=== PATIENT | male | born 1935 | race Caucasian/White ===

== ENCOUNTER 2023-02-23 15:37 | Inpatient (IN) | payer MEDICARE, BC ==
--- NOTE | 2023-02-23 16:26 | ED ---
Extremity Problem HPI - General Chief complaint: Extremity Injury, Lower Stated complaint: Bilat leg swelling Time Seen by Provider: 02/23/23 15:53 Source: patient, RN notes reviewed, old records reviewed Mode of arrival: EMS Limitations: no limitations - History of Present Illness Initial comments: This is a 87-year-old male to the emergency department today. Presents today for evaluation of lower extremity edema with weeping. Patient has significant pain in both legs with significant swelling as well as shortness of breath especially with exertion. 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 Patient has no fevers no chest pain MD Complaint: extremity pain, extremity swelling -: days(s) Location: bilateral lower extremity History of Same: Yes -: Yes arthralgia Radiation: none Severity scale (1-10): 7 Quality: aching Consistency: constant Improves with: nothing Worsens with: nothing Associated Symptoms: shortness of breath - Related Data Home Medications Medication Instructions Recorded Confirmed Atorvastatin [Lipitor] 40 mg PO HS@209902/13/18 02/23/23 Citalopram Hydrobromide [CeleXA] 20 mg PO DAILY@0900 02/13/18 02/23/23 Tamsulosin [Flomax] 0.4 mg PO DAILY@0900 02/13/18 02/23/23 Acetaminophen Tab [Tylenol] 650 mg PO Q6H PRN 02/23/23 02/23/23 Ascorbic Acid [Vitamin C] 500 mg PO HS@209902/23/23 02/23/23 Cholecalciferol [Vitamin D3 (25 50 mcg PO DAILY@0902/23/23 02/23/23 Mcg = 1000 Iu)] Docusate Sodium [Dok] 100 mg PO BID@0900,209902/23/23 02/23/23 Ipratropium-Albuterol Nebulize 3 ml INHALATION RT-Q4H PRN 02/23/23 02/23/23 [Duoneb 0.5 mg-3 mg/3 ml Soln] Levothyroxine Sodium [Synthroid] 75 mcg PO DAILY@0700 02/23/23 02/23/23 Menthol-Zinc Oxide Oint 1 applic TOPICAL BID@0600,209902/23/23 02/23/23 [Calmoseptine Ointment] Miconazole Nitrate 2% Powder 1 applic TOPICAL BID@0600,2100 02/23/23 02/23/23 Multivitamins, Thera [Multivitamin 1 tab PO DAILY@0900 02/23/23 02/23/23 (formulary)] Rivaroxaban [Xarelto] 15 mg PO DAILY@1500 02/23/23 02/23/23 Trospium Chloride 20 mg PO HS@2100 02/23/23 02/23/23 carvediloL [Coreg] 12.5 mg PO BID@0900,2100 02/23/23 02/23/23 Previous Rx's Medication Instructions Recorded Furosemide [Lasix] 40 mg PO DAILY #30 tab 02/24/23 Spironolactone [Aldactone] 25 mg PO DAILY #30 tab 02/24/23 Losartan [Cozaar] 100 mg PO HS tab 02/26/23 Allergies Allergy/AdvReac Type Severity Reaction Status Date / Time No Known Allergies Allergy Verified 02/23/23 18:48 Review of Systems ROS Statement: Those systems with pertinent positive or pertinent negative responses have been documented in the HPI. ROS Other: All systems not noted in ROS Statement are negative. Past Medical History Past Medical History: Atrial Fibrillation, Cancer, Hyperlipidemia, Hypertension, Prostate Disorder, Thyroid Disorder Additional Past Medical History / Comment(s): colon cancer-. was recently in [facility] for hypertensive encephalopathy- was very lethargic at home he could not understand directions, confused, could not talk right had word salad could not hold pen, confused symptoms of stroke but doctors ruled out no stroke, very hypertensive confusion related to encephalopathy, could not comprehend anything. He is better with talking now, each day language gets better and comprehending is better but not all the way where it needs to be, uses a cane or walker to walk. History of Any Multi-Drug Resistant Organisms: None Reported Past Surgical History: Appendectomy, Heart Catheterization With Stent, Orthopedic Surgery Additional Past Surgical History / Comment(s): Polyp removal cardiac ablation for a fibrillation, left shoulder surgery Past Anesthesia/Blood Transfusion Reactions: No Reported Reaction Date of Last Stent Placement:: 2012 Past Psychological History: No Psychological Hx Reported Smoking Status: Former smoker Past Alcohol Use History: None Reported Past Drug Use History: None Reported - Past Family History Father History Unknown: Yes Mother Family Medical History: Cancer Additional Family Medical History / Comment(s): pancreatic cancer, aortic aneurysm General Exam General appearance: alert, in no apparent distress, anxious Head exam: Present: atraumatic, normocephalic, normal inspection Eye exam: Present: normal appearance, PERRL, EOMI. Absent: scleral icterus, co njunctival injection, periorbital swelling ENT exam: Present: normal exam, mucous membranes moist Neck exam: Present: normal inspection. Absent: tenderness, meningismus, lymphadenopathy Respiratory exam: Present: normal lung sounds bilaterally. Absent: respiratory distress, wheezes, rales, rhonchi, stridor Cardiovascular Exam: Present: regular rate, normal rhythm, normal heart sounds. Absent: systolic murmur, diastolic murmur, rubs, gallop, clicks GI/Abdominal exam: Present: soft, normal bowel sounds. Absent: distended, tenderness, guarding, rebound, rigid Extremities exam: Present: normal inspection, full ROM, normal capillary refill, other (LegEdema,draining). Absent: tenderness, pedal edema, joint swelling, calf tenderness Back exam: Present: normal inspection Neurological exam: Present: alert, oriented X3, CN II-XII intact Psychiatric exam: Present: normal affect, normal mood Skin exam: Present: warm, dry, intact, normal color. Absent: rash Course Vital Signs 02/23/23 02/23/23 02/23/23 16:02 18:32 21:00 Temperature 98.6 F 98.7 F 98.8 F Pulse Rate 66 67 68 Respiratory 18 18 20 Rate Blood Pressure 166/92 164/98 144/99 O2 Sat by Pulse 94 L 93 L 94 L Oximetry - Reevaluation(s) Reevaluation #1: 02/23/23 18:43 Medical records reviewed Reevaluation #2: 02/23/23 18:43 Patient symptoms unchanged Reevaluation #3: 02/23/23 18:43 patient informed results questions answered Reevaluation #4: 02/23/23 18:43 Was pt. sent in by a medical professional or institution (, PA, AUTO BODY PAINTER, urgent care, hospital, or [place] health care facility...) When possible be specific @ -no Did you speak to anyone other than the patient for history (EMS, parent, family, police, friend...)? What history was obtained from this source @ -no Did you review nursing and triage notes (agree or disagree)? Why? @ -agree Are old charts reviewed (outside hosp., previous admission, EMS record, old EKG, old radiological studies, urgent care reports/EKG's, [place] health care facility records)? Report findings @ -yes Differential Diagnosis (chest pain, altered mental status, abdominal pain women, abdominal pain men, vaginal bleeding, weakness, fever, dyspnea, syncope, headache, dizziness, GI bleed, back pain, seizure, CVA, palpatations, mental health, musculoskeletal)? @ -prior EKG interpreted by me (3pts min.). @ -yes X-rays interpreted by me (1pt min.). @ -yes CT interpreted by me (1pt min.). @ -no U/S interpreted by me (1pt. min.). @ -no What testing was considered but not performed or refused? (CT, X-rays, U/S, labs)? Why? @ -none What meds were considered but not given or refused? Why? @ -none Did you discuss the management of the patient with other professionals ( professionals i.e. , PA, AUTO BODY PAINTER, lab, RT, psych nurse, secondary social studies teacher, document image technician, teacher, zoology technical officer, director of casework department)? Give summary @ -no Was smoking cessation discussed for >3mins.? @ -no Was critical care preformed (if so, how long)? @ -no Were there social determinants of health that impacted care today? How? (Homelessness, low income, unemployed, alcoholism, drug addiction, transportation, low edu. Level, literacy, decrease access to med. care, residential, rehab)? @ -none Was there de-escalation of care discussed even if they declined (Discuss DNR or withdrawal of care, Hospice)? DNR status @ -no What co-morbidities impacted this encounter? (DM, HTN, Smoking, COPD, CAD, Cancer, CVA, ARF, Chemo, Hep., AIDS, mental health diagnosis, sleep apnea, morbid obesity)? @ -none Was patient admitted / discharged? Hospital course, mention meds given and route, prescriptions, significant lab abnormalities, going to OR and other pertinent info. @ - 87 male to the emergency department for evaluation of significant CHF both on x-ray and clinically with shortness of breath on exertion. Significant lower extremity edema, patient be admitted for significant CHF exacerbation diuresis Admitted Undiagnosed new problem with uncertain prognosis? @ -no Drug Therapy requiring intensive monitoring for toxicity (Heparin, Nitro, Insulin, Cardizem)? @ -no Were any procedures done? @ -no Diagnosis/symptom? @ -CHF Acute, or Chronic, or Acute on Chronic? @ -Acute Uncomplicated (without systemic symptoms) or Complicated (systemic symptoms)? @ -Complicated Side effects of treatment? @ -no Exacerbation, Progression, or Severe Exacerbation? @ -exacerbation Poses a threat to life or bodily function? How? (Chest pain, [place], [place], pneumonia, PE, COPD, DKA, ARF, appy, cholecystitis, CVA, Diverticulitis, Homicidal, Suicidal, threat to staff... and all critical care pts) @ -yes severe cardiac congestive heart failure Reevaluation #5: 02/23/23 18:43 Differential Dyspnea: Coronary syndrome, arrhythmia, tamponade, asthma, COPD, pulmonary embolism, pneumonia, pneumothorax, pulmonary effusion, anaphylaxis, diabetic ketoacidosis, flailed chest, pulmonary contusion, diaphragmatic rupture, anemia, neuromuscular, this is not meant to be an all-inclusive list. - Consultations Consultation #1: Spoke Dr. Madden agrees admit this patient Medical Decision Making - Medical Decision Making 87 male to the emergency department for evaluation of significant CHF both on x- ray and clinically with shortness of breath on exertion. Significant lower extr emity edema, patient be admitted for significant CHF exacerbation diuresis - Lab Data Result diagrams: 02/23/23 17:02 02/25/23 05:46 Lab Results 02/23/23 02/23/23 02/23/23 Range/Units 17:02 17:02 17:02 WBC 5.5 (3.8-10.6) k/uL RBC 4.45 (4.30-5.90) m/uL Hgb 13.8 (13.0-17.5) gm/dL Hct 41.8 (39.0-53.0) % MCV 94.0 (80.0-100.0) fL MCH 31.0 (25.0-35.0) pg MCHC 33.0 (31.0-37.0) g/dL RDW 15.3 (11.5-15.5) % Plt Count 203 (150-450) k/uL MPV 7.2 Neutrophils % 55 % Lymphocytes % 25 % Monocytes % 9 % Eosinophils % 6 % Basophils % 1 % Neutrophils # 3.0 (1.3-7.7) k/uL Lymphocytes # 1.4 (1.0-4.8) k/uL Monocytes # 0.5 (0-1.0) k/uL Eosinophils # 0.3 (0-0.7) k/uL Basophils # 0.0 (0-0.2) k/uL Poikilocytosis Slight PT 13.1 H (10.0-12.5) sec INR 1.2 H (<1.2) APTT 33.2 H (22.0-30.0) sec Sodium 138 (137-145) mmol/L Potassium 3.7 (3.5-5.1) mmol/L Chloride 107 (98-107) mmol/L Carbon Dioxide 24 (22-30) mmol/L Anion Gap 7 mmol/L BUN 18 (9-20) mg/dL Creatinine 1.22 (0.66-1.25) mg/dL Est GFR (CKD-EPI)AfAm 62 (>60 ml/min/1.73 sqM) Est GFR (CKD-EPI)NonAf 53 (>60 ml/min/1.73 sqM) Glucose 95 (74-99) mg/dL Calcium 8.4 (8.4-10.2) mg/dL Phosphorus 3.1 (2.5-4.5) mg/dL Magnesium 1.8 (1.6-2.3) mg/dL Total Bilirubin 1.0 (0.2-1.3) mg/dL AST 40 (17-59) U/L ALT 36 (4-49) U/L Alkaline Phosphatase 97 (38-126) U/L Troponin I (0.000-0.034) ng/mL NT-Pro-B Natriuret Pep 1750 pg/mL Total Protein 6.1 L (6.3-8.2) g/dL Albumin 2.8 L (3.5-5.0) g/dL 02/23/23 02/23/23 02/23/23 Range/Units 17:02 21:12 22:55 WBC (3.8-10.6) k/uL RBC (4.30-5.90) m/uL Hgb (13.0-17.5) gm/dL Hct (39.0-53.0) % MCV (80.0-100.0) fL MCH (25.0-35.0) pg MCHC (31.0-37.0) g/dL RDW (11.5-15.5) % Plt Count (150-450) k/uL MPV Neutrophils % % Lymphocytes % % Monocytes % % Eosinophils % % Basophils % % Neutrophils # (1.3-7.7) k/uL Lymphocytes # (1.0-4.8) k/uL Monocytes # (0-1.0) k/uL Eosinophils # (0-0.7) k/uL Basophils # (0-0.2) k/uL Poikilocytosis PT (10.0-12.5) sec INR (<1.2) APTT (22.0-30.0) sec Sodium (137-145) mmol/L Potassium (3.5-5.1) mmol/L Chloride (98-107) mmol/L Carbon Dioxide (22-30) mmol/L Anion Gap mmol/L BUN (9-20) mg/dL Creatinine (0.66-1.25) mg/dL Est GFR (CKD-EPI)AfAm (>60 ml/min/1.73 sqM) Est GFR (CKD-EPI)NonAf (>60 ml/min/1.73 sqM) Glucose (74-99) mg/dL Calcium (8.4-10.2) mg/dL Phosphorus (2.5-4.5) mg/dL Magnesium (1.6-2.3) mg/dL Total Bilirubin (0.2-1.3) mg/dL AST (17-59) U/L ALT (4-49) U/L Alkaline Phosphatase (38-126) U/L Troponin I 0.022 0.029 0.028 (0.000-0.034) ng/mL NT-Pro-B Natriuret Pep pg/mL Total Protein (6.3-8.2) g/dL Albumin (3.5-5.0) g/dL 02/24/23 Range/Units 05:50 WBC (3.8-10.6) k/uL RBC (4.30-5.90) m/uL Hgb (13.0-17.5) gm/dL Hct (39.0-53.0) % MCV (80.0-100.0) fL MCH (25.0-35.0) pg MCHC (31.0-37.0) g/dL RDW (11.5-15.5) % Plt Count (150-450) k/uL MPV Neutrophils % % Lymphocytes % % Monocytes % % Eosinophils % % Basophils % % Neutrophils # (1.3-7.7) k/uL Lymphocytes # (1.0-4.8) k/uL Monocytes # (0-1.0) k/uL Eosinophils # (0-0.7) k/uL Basophils # (0-0.2) k/uL Poikilocytosis PT (10.0-12.5) sec INR (<1.2) APTT (22.0-30.0) sec Sodium 140 (137-145) mmol/L Potassium 3.3 L (3.5-5.1) mmol/L Chloride 106 (98-107) mmol/L Carbon Dioxide 26 (22-30) mmol/L Anion Gap 8 mmol/L BUN 17 (9-20) mg/dL Creatinine 1.18 (0.66-1.25) mg/dL Est GFR (CKD-EPI)AfAm 64 (>60 ml/min/1.73 sqM) Est GFR (CKD-EPI)NonAf 55 (>60 ml/min/1.73 sqM) Glucose 98 (74-99) mg/dL Calcium 8.4 (8.4-10.2) mg/dL Phosphorus (2.5-4.5) mg/dL Magnesium (1.6-2.3) mg/dL Total Bilirubin (0.2-1.3) mg/dL AST (17-59) U/L ALT (4-49) U/L Alkaline Phosphatase (38-126) U/L Troponin I (0.000-0.034) ng/mL NT-Pro-B Natriuret Pep pg/mL Total Protein (6.3-8.2) g/dL Albumin (3.5-5.0) g/dL - EKG Data -: EKG Interpreted by Me (EKG is atrial flutter 67 QRS 106 QTc 470) - Radiology Data Radiology results: report reviewed (Chest x-rays positive for pulmonary edema), image reviewed Disposition Clinical Impression: Bilateral leg edema, CHF (congestive heart failure), Pulmonary edema Disposition: ADMITTED IP TO THIS HOSP Condition: Good Is patient prescribed a controlled substance at d/c from ED?: No Time of Disposition: 18:40
[2023-02-23 17:27] LABS: Basophils % (A) 1 %; Eosinophils # (A) 0.3 k/uL (0-0.7); Eosinophils % (A) 6 %; HCT 41.8 % (39.0-53.0); HGB 13.8 gm/dL (13.0-17.5); Lymphocytes # (A) 1.4 k/uL (1.0-4.8); Lymphocytes % (A) 25 %; Mean Platelet Volume 7.2; Monocytes # (A) 0.5 k/uL (0-1.0); Monocytes % (A) 9 %; Neutrophils % (A) 55 %; Platelet Count 203 k/uL (150-450); Poikilocytosis Slight; RBC 4.45 m/uL (4.30-5.90); RDW 15.3 % (11.5-15.5); WBC 5.5 k/uL (3.8-10.6)
--- NOTE | 2023-02-23 17:41 | XR ---
EXAMINATION TYPE: XR chest 2V DATE OF EXAM: 02/23/2023 COMPARISON: None INDICATION: Weakness retaining water TECHNIQUE: Single frontal view of the chest is obtained. FINDINGS: The heart size is enlarged. The pulmonary vasculature is somewhat prominent. Mild bibasilar infiltrates are present slightly greater at the left base. Correlate for pulmonary mack ma. Atelectasis and pneumonia are within the differential. IMPRESSION: 1. Clinical correlation for congestive heart failure. 2. Mild left lower lobe atelectasis or pneumonia should also be considered within the differential.
[2023-02-23 17:46] LABS: INR 1.2 (<1.2); Partial Thromboplastin Time 33.2 sec (22.0-30.0); Prothrombin Time 13.1 sec (10.0-12.5)
[2023-02-23 17:54] LABS: ALT 36 U/L (4-49); AST 40 U/L (17-59); African American GFR (CKD) 62 (>60 ml/min/1.73 sqM); Albumin 2.8 g/dL (3.5-5.0); Alkaline Phosphatase 97 U/L (38-126); Anion Gap 7 mmol/L; Blood Urea Nitrogen 18 mg/dL (9-20); Calcium 8.4 mg/dL (8.4-10.2); Carbon Dioxide 24 mmol/L (22-30); Chloride 107 mmol/L (98-107); Glucose 95 mg/dL (74-99); Magnesium 1.8 mg/dL (1.6-2.3); Non-African American GFR(CKD) 53 (>60 ml/min/1.73 sqM); Phosphorus 3.1 mg/dL (2.5-4.5); Potassium 3.7 mmol/L (3.5-5.1); Sodium 138 mmol/L (137-145); Total Protein 6.1 g/dL (6.3-8.2)
[2023-02-23 18:03] LABS: NT-Pro-B-Type Natriuretic Pept 1750 pg/mL
[2023-02-23] MEDS ORDERED: FUROSEMIDE 10 MG/ML 4 ML VIAL IV SCH (19:00)
[2023-02-23] MEDS ORDERED: ONDANSETRON 4 MG/2 ML VIAL IVP PRN (21:37)
[2023-02-23] MEDS ORDERED: ALPRAZolam 0.25 MG TAB PO PRN (21:37)
[2023-02-23] MEDS ORDERED: MELATONIN 3 MG TABLET PO PRN (21:37)
[2023-02-23] MEDS ORDERED: NALOXONE 0.4 MG/ML 1 ML VIAL IV PRN (21:37)
[2023-02-23] MEDS ORDERED: ACETAMINOPHEN TAB 325 MG TAB PO PRN (21:37)
[2023-02-23] MEDS ORDERED: IPRATROPIUM-ALBUTEROL 3 ML NEB INHALATION PRN (21:40)
--- NOTE | 2023-02-23 21:43 | P.HPIM ---
History of Present Illness H&P Date: 02/23/23 Chief Complaint: Leg swelling This is a pleasant 87-year-old patient, follows with Dr. Levi Pino. With chronic stable medical conditions that include atrial fibrillation, hypertension, hyperlipidemia, BPH, hypothyroid. CAD with stent. Lives at [facility]. Does use a walker at baseline. Patient complains of 2-3 months increasing leg swelling. Left greater than right. Denies any office shortness of breath. Uses one or 2 pillows at night. Denies any fever and chills. No cough. Appetite is good. No change in bowel or urine patent. Denies any pain. Able to walk about 20-30 steps. Review of systems: GEN.: None EYES: None HEENT: None NECK: None RESPIRATORY: None CARDIOVASCULAR: None GASTROINTESTINAL: None GENITOURINARY: None MUSCULOSKELETAL: Joint pains LYMPHATICS: None HEMATOLOGICAL: None PSYCHIATRY: Forgetful NEUROLOGICAL: Uses a cane and walker Past medical history to include: Atrial fibrillation, hyperlipidemia, hypertension, prostate disorder, hypothyroid, colon cancer, CAD with stent cardiac ablation for atrial fibrill ation Social history: [facility]. Previous smoker. No alcohol. Physical examination: VITAL SIGNS: 98.8, 68, 20, 144, 99, 94% room air GENERAL: BMI 33.2, reclining in bed awake not in distress. EYES: Pupils equal. Conjunctiva normal. HEENT: External appearance of nose and ears normal, oral cavity grossly normal. Decreased hearing NECK: JVD not raised; masses not palpable. HEART: [First and second heart sounds are normal; edema and lower extremity left greater than right. LUNGS:[ Respiratory rate normal; decreased breath sounds. ABDOMEN: Soft, nontender, liver spleen not palpable, no masses palpable. PSYCH: Patient is able to answer questions but intermittently forgetfull. MUSCULOSKELETAL:No Clubbing/cyanosis;muscles-grossly intact. OA NEUROLOGICAL: Cranial nerves grossly intact; no facial asymmetry, power and sensation grossly intact. LYMPHATICS: No lymph nodes palpable in the axilla and neck INVESTIGATIONS, reviewed in the clinical context: White count 5.5 hemoglobin 13.8 platelets 203 sodium 138 potassium 3.7 BUN 18 creatinine 1.2 to Troponin I 0.022 ProBNP 1750 EKG tracing personally reviewed by me-atrial flutter, rate 67 Chest x-ray film personally reviewed by me-cardiomegaly, pulmonary edema Assessment and plan: -Acute congestive heart failure exacerbation. EF not known. IV Lasix 40 mg every 8. Strict I's and O's. Close restriction 1500 mL a day. 2-D echocardiogram. -Depression and anxiety not otherwise specified Celexa 20 mg a day -Hypothyroid Synthroid 75 g a day -BPH Flomax 0.4 mg a day -Persistent atrial flutter fibrillation, rate controlled Xarelto 50 mg a day -Essential hypertension Coreg 12.5 mg by mouth twice a day -Hyperlipidemia Lipitor 40 mg daily at bedtime -CAD with a prior history of stent Coreg, Lipitor -Chronic medical debility, uses a walker at baseline -Moderate cognitive impairment, likely from date onset Alzheimer's dementia -DO NOT RESUSCITATE Care was discussed with the patient. Questions answered. Advance care planning [02/23/2023] Discussed with the patient. He had questions. Unscented. Wishes to proceed with DO NOT RESUSCITATE Time spent for this about 25 minutes Past Medical History Past Medical History: Atrial Fibrillation, Cancer, Hyperlipidemia, Hypertension, Prostate Disorder, Thyroid Disorder Additional Past Medical History / Comment(s): colon cancer-. was recently in [facility] for hypertensive encephalopathy- was very lethargic at home he could not understand directions, confused, could not talk right had word salad could not hold pen, confused symptoms of stroke but doctors ruled out no stroke, very hypertensive confusion related to encephalopathy, could not comprehend a nything. He is better with talking now, each day language gets better and comprehending is better but not all the way where it needs to be, uses a cane or walker to walk. History of Any Multi-Drug Resistant Organisms: None Reported Past Surgical History: Appendectomy, Heart Catheterization With Stent, Orthopedic Surgery Additional Past Surgical History / Comment(s): Polyp removal cardiac ablation for a fibrillation, left shoulder surgery Past Anesthesia/Blood Transfusion Reactions: No Reported Reaction Date of Last Stent Placement:: 2012 Past Psychological History: No Psychological Hx Reported Smoking Status: Former smoker Past Alcohol Use History: None Reported Past Drug Use History: None Reported - Past Family History Father History Unknown: Yes Mother Family Medical History: Cancer Additional Family Medical History / Comment(s): pancreatic cancer, aortic aneurysm Medications and Allergies Home Medications Medication Instructions Recorded Confirmed Type Atorvastatin [Lipitor] 40 mg PO HS@2100 04/18 11/14/23 History Citalopram Hydrobromide [CeleXA] 20 mg PO DAILY@0900 02/13/18 02/23/23 History Tamsulosin [Flomax] 0.4 mg PO DAILY@0900 02/13/18 02/23/23 History Acetaminophen Tab [Tylenol] 650 mg PO Q6H PRN 02/23/23 02/23/23 History Ascorbic Acid [Vitamin C] 500 mg PO HS@209902/23/23 02/23/23 History Cholecalciferol [Vitamin D3 (25 50 mcg PO DAILY@0900 02/23/23 02/23/23 History Mcg = 1000 Iu)] Docusate Sodium [Dok] 100 mg PO BID@0900,209902/23/23 02/23/23 History Ipratropium-Albuterol Nebulize 3 ml INHALATION RT-Q4H PRN 02/23/23 02/23/23 History [Duoneb 0.5 mg-3 mg/3 ml Soln] Levothyroxine Sodium [Synthroid] 75 mcg PO DAILY@0700 02/23/23 02/23/23 History Menthol-Zinc Oxide Oint 1 applic TOPICAL BID@0600,209902/23/23 02/23/23 History [Calmoseptine Ointment] Miconazole Nitrate 2% Powder 1 applic TOPICAL BID@0600,209902/23/23 02/23/23 History Multivitamins, Thera [Multivitamin 1 tab PO DAILY@0900 02/23/23 02/23/23 History (formulary)] Rivaroxaban [Xarelto] 15 mg PO DAILY@1500 02/23/23 02/23/23 History Trospium Chloride 20 mg PO HS@209902/23/23 02/23/23 History carvediloL [Coreg] 12.5 mg PO BID@0900,209902/23/23 02/23/23 History Allergies Allergy/AdvReac Type Severity Reaction Status Date / Time No Known Allergies Allergy Verified 02/23/23 18:48 Physical Exam Vitals: Vital Signs Temp Pulse Resp BP Pulse Ox 02/23/23 21:00 98.8 F 68 20 144/99 94 L 02/23/23 18:32 98.7 F 67 18 164/98 93 L 02/23/23 16:02 98.6 F 66 18 166/92 94 L Intake and Output 02/23/23 02/23/23 02/23/23 06:59 14:59 22:59 Output Total 1330 Balance -1330 Output: Urine 1330 Other: # Voids 2 Weight 111.13 kg Results CBC & Chem 7: 02/23/23 17:02 02/23/23 17:02 Labs: Abnormal Lab Results - Last 24 Hours (Table) 02/23/23 02/23/23 Range/Units 17:02 17:02 PT 13.1 H (10.0-12.5) sec INR 1.2 H (<1.2) APTT 33.2 H (22.0-30.0) sec Total Protein 6.1 L (6.3-8.2) g/dL Albumin 2.8 L (3.5-5.0) g/dL
[2023-02-23] MEDS ORDERED: ENOXAPARIN 40 MG/0.4 ML SYRINGE SQ SCH (21:45)
[2023-02-23] MEDS: FUROSEMIDE 10 MG/ML 4 ML VIAL IV SCH (21:53)
[2023-02-24] MEDS: FUROSEMIDE 10 MG/ML 4 ML VIAL IV SCH (06:10)
[2023-02-24] MEDS: NYSTATIN 100,000 UNIT/GM POWD 15 GM TOPICAL SCH ×2 (06:10→21:23)
[2023-02-24] MEDS: LEVOTHYROXINE 75 MCG TAB PO SCH (06:10)
[2023-02-24 06:16] LABS: African American GFR (CKD) 64 (>60 ml/min/1.73 sqM); Anion Gap 8 mmol/L; Blood Urea Nitrogen 17 mg/dL (9-20); Calcium 8.4 mg/dL (8.4-10.2); Carbon Dioxide 26 mmol/L (22-30); Chloride 106 mmol/L (98-107); Glucose 98 mg/dL (74-99); Non-African American GFR(CKD) 55 (>60 ml/min/1.73 sqM); Potassium 3.3 mmol/L (3.5-5.1); Sodium 140 mmol/L (137-145)
[2023-02-24] MEDS: POTASSIUM CHLORIDE ER 20 MEQ TAB.ER PO SCH ×2 (09:49→11:35)
[2023-02-24] MEDS: MULTIVITAMINS, THERA 1 EACH TAB PO SCH (09:49)
[2023-02-24] MEDS: SPIRONOLACTONE 25 MG TAB PO SCH (09:49)
[2023-02-24] MEDS: CITALOPRAM HYDROBROMIDE 20 MG TAB PO SCH (09:49)
[2023-02-24] MEDS: TAMSULOSIN 0.4 MG CAP.ER.24H PO SCH (09:49)
[2023-02-24] MEDS: carvediloL 12.5 MG TAB PO SCH ×2 (09:50→21:23)
[2023-02-24] MEDS: FUROSEMIDE 40 MG TAB PO SCH (09:56)
--- NOTE | 2023-02-24 10:53 | CA ---
Transthoracic Echo Report Name: Jalen Adorno Age: 87 Gender: M : 1935 Exam Date: 02/24/2023 08:23 Exam Location: [facility] Ht (in): 72 Wt (lb): 245 Ordering Physician: Tremaine Madden MD Attending/Referring Phys: Miner Operator Autumn Rascon RDCS Procedure CPT: Indications: chf Cardiac Hx: Technical Quality: Technically difficult study Contrast 1: Definity Total Dose (mL): 2 Contrast 2: Total Dose (mL): MEASUREMENTS (Male / Female) Normal Values 2D ECHO LV Diastolic Diameter PLAX 3.4 cm 4.2 - 5.9 / 3.9 - 5.3 cm LV Systolic Diameter PLAX 2.2 cm IVS Diastolic Thickness 2.0 cm 0.6 - 1.0 / 0.6 - 0.9 cm LVPW Diastolic Thickness 1.9 cm 0.6 - 1.0 / 0.6 - 0.9 cm LV Relative Wall Thickness 1.2 RV Internal Dim ED PLAX 3.5 cm LVOT Diameter 2.1 cm LA Volume 105.2 cm??? 18 - 58 / 22 - 52 cm??? LA Volume Index 43.7 cm???/m??? 16 - 28 cm???/m??? M-MODE Aortic Root Diameter MM 3.7 cm LA Systolic Diameter MM 4.5 cm LA Ao Ratio MM 1.2 AV Cusp Separation MM 1.4 cm DOPPLER AV Peak Velocity 181.2 cm/s AV Peak Gradient 13.1 mmHg AV Mean Velocity 131.4 cm/s AV Mean Gradient 7.6 mmHg AV Velocity Time Integral 38.1 cm LVOT Peak Velocity 95.2 cm/s LVOT Peak Gradient 3.6 mmHg LVOT Velocity Time Integral 23.5 cm LVOT Stroke Volume 82.8 cm??? LVOT Stroke Volume Index 35.7 ml/m??? LVOT Cardiac Index 2406.8 cm???/min???m??? AV Area Cont Eq vti 2.2 cm??? AV Area Cont Eq pk 1.9 cm??? MV Area PHT 5.5 cm??? Mitral E Point Velocity 89.3 cm/s Mitral A Point Velocity 55.5 cm/s Mitral E to A Ratio 1.6 MV Deceleration Time 137.0 ms MV E' Velocity 5.4 cm/s Mitral E to MV E' Ratio 16.4 TR Peak Velocity 276.6 cm/s TR Peak Gradient 30.6 mmHg Right Ventricular Systolic Press 35.6 mmHg FINDINGS Left Ventricle Severely increased left ventricular wall thickness. Left ventricular cavity size normal. Normal left ventricular systolic function with no obvious regional wall motion abnormalities. Left ventricular ejection fraction is estimated at 55-60 %. Right Ventricle Normal right ventricular size and function. Mild pulmonary hypertension. Atypical septal motion noted Right Atrium Normal right atrial size. Left Atrium Severely increased left atrial volume. Moderately increased left atrial area. Mitral Valve Structurally normal mitral valve. Moderate mitral annular calcification. Mitral valve thickened. Mild mitral regurgitation. Aortic Valve Trileaflet aortic valve. No aortic stenosis. No aortic regurgitation. Aortic valve sclerosis. Tricuspid Valve Structurally normal tricuspid valve. Nldr-[id number] tricuspid regurgitation. Pulmonic Valve Trace pulmonic regurgitation. Pericardium No pericardial effusion. Aorta Normal size aortic root and proximal ascending aorta. CONCLUSIONS Normal LV size and systolic function with atypical septal motion. Aortic valve sclerosis and mitral annular calcification no significant restriction. Mild mitral and tricuspid regurgitation noted no pericardial effusion. No significant elevation of right-sided pressures Previewed by: Dr. Chino Porter MD (Electronically Signed) Final Date: 24 February 2023 10:52
[2023-02-24] MEDS ORDERED: LOSARTAN 50 MG TAB PO STA (11:17)
--- NOTE | 2023-02-24 12:15 | P.CRDCN ---
History of Present Illness Consult date: 02/24/23 Consult reason: congestive heart failure History of present illness: History of present illness: This is an 87-year-old male with past medical history of atrial fibrillation with previous ablation, hypertension, hyperlipidemia, hypothyroidism, history of hypertensive encephalopathy, coronary artery disease with previous stent, remote history of tobacco use. We have been asked to evaluate the patient for heart failure. Patient presented to the emergency center due to lower extremity edema and weeping of both legs along with exertional shortness of breath. Patient is a vague historian. Discussed patient's history over the phone with the patient's son and reviewed known cardiac history as above. He also states he had an open heart surgery for his heart beating encapsulated.. 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 Patient resides at [facility] in [place]. He had a recent hospitalization at [facility] for benign prostatic hypertrophy and urinary retention with Sethi catheter recently removed. EKG atrial fibrillation with controlled ventricular rate Chest x-ray: Clinical correlation for heart failure. Mild left lower lobe atelectasis or pneumonia should be considered. CBC unremarkable. INR 1.2. Potassium 3.3 otherwise electrolytes and renal function are normal. Troponins negative 3. ProBNP 1750, normal for age. Home cardiac medications: Atorvastatin 40 g at bedtime, Coreg 12.5 mg twice daily, levothyroxine 75 g daily, losartan 50 mg at bedtime, Xarelto 50 mg daily Review Of Systems: At the time of my evaluation: Constitutional: No fever, no chills. No weakness, fatigue or lethargy. EENT: No headache. No dizziness. Lungs: No shortness of breath, cough, no sputum production. No wheezing. Cardiovascular: No chest pain, + chronic lower extremity edema. No palpitations. No paroxysmal nocturnal dyspnea. No orthopnea. No lightheadedness or dizziness. No syncopal episodes. Abdominal: No abdominal pain. No nausea, vomiting. No diarrhea. No constipation. No bloody or tarry stools. Musculoskeletal: No myalgias. No muscle weakness, no frequent falls. Integumentary: No wounds. No rash. No unusual bruising. Neurologic: No aphasia. No facial droop. Physical examination: Gen: This is an 87-year-old male. He is resting in bed appears to be comfortable and in no acute distress. Patient is able to lay flat in bed. VS: reviewed HEENT: Head is atraumatic, normocephalic. Pupils equal, round. Sclerae is anicteric. NECK: Supple. No JVD. LUNGS: Clear to auscultation. No wheezes or rhonchi. No intercostal retractions. HEART: Irregular rate and rhythm. ABDOMEN: Soft No tenderness. EXTREMITIES: 2+ pedal edema. No calf tenderness. NEUROLOGICAL: Patient is awake, alert and oriented x3. Assessment: Acute diastolic heart failure Chronic atrial fibrillation Hypertension Hyperlipidemia History of coronary artery disease with previous stent Plan: Transition IV Lasix to oral 40 mg daily Start patient on Aldactone 25 mg daily Continue other home cardiac medications patient is clear for discharge from cardiology Thank you kindly for this consultation. Nurse practitioner note has been reviewed, I agree with documented findings and plan of care. Patient was seen and examined. Past Medical History Past Medical History: Atrial Fibrillation, Cancer, Hyperlipidemia, Hypertension, Prostate Disorder, Thyroid Disorder Additional Past Medical History / Comment(s): colon cancer-. was recently in [facility] for hypertensive encephalopathy- was very lethargic at home he could not understand directions, confused, could not talk right had word salad could not hold pen, confused symptoms of stroke but doctors ruled out no stroke, very hypertensive confusion related to encephalopathy, could not comprehend anything. He is better with talking now, each day language gets better and comprehending is better but not all the way where it needs to be, uses a cane or walker to walk. History of Any Multi-Drug Resistant Organisms: None Reported Past Surgical History: Ablation, Appendectomy, Heart Catheterization With Stent, Orthopedic Surgery Additional Past Surgical History / Comment(s): Polyp removal, cardiac ablation for a fibrillation, left shoulder surgery Past Anesthesia/Blood Transfusion Reactions: No Reported Reaction Date of Last Stent Placement:: 2012 Past Psychological History: No Psychological Hx Reported Smoking Status: Former smoker Past Alcohol Use History: None Reported Past Drug Use History: None Reported - Past Family History Father History Unknown: Yes Mother Family Medical History: Cancer Additional Family Medical History / Comment(s): pancreatic cancer, aortic aneurysm Medications and Allergies Home Medications Medication Instructions Recorded Confirmed Type Atorvastatin [Lipitor] 40 mg PO HS@2100 02/13/18 02/23/23 History Citalopram Hydrobromide [CeleXA] 20 mg PO DAILY@0900 02/13/18 02/23/23 History Tamsulosin [Flomax] 0.4 mg PO DAILY@0900 02/13/18 02/23/23 History Acetaminophen Tab [Tylenol] 650 mg PO Q6H PRN 02/23/23 02/23/23 History Ascorbic Acid [Vitamin C] 500 mg PO HS@209902/23/23 02/23/23 History Cholecalciferol [Vitamin D3 (25 50 mcg PO DAILY@0900 02/23/23 02/23/23 History Mcg = 1000 Iu)] Docusate Sodium [Dok] 100 mg PO BID@0900,209902/23/23 02/23/23 History Ipratropium-Albuterol Nebulize 3 ml INHALATION RT-Q4H PRN 02/23/23 02/23/23 History [Duoneb 0.5 mg-3 mg/3 ml Soln] Levothyroxine Sodium [Synthroid] 75 mcg PO DAILY@0700 02/23/23 02/23/23 History Menthol-Zinc Oxide Oint 1 applic TOPICAL BID@0600,209902/23/23 02/23/23 History [Calmoseptine Ointment] Miconazole Nitrate 2% Powder 1 applic TOPICAL BID@0600,209902/23/23 02/23/23 History Multivitamins, Thera [Multivitamin 1 tab PO DAILY@0900 02/23/23 02/23/23 History (formulary)] Rivaroxaban [Xarelto] 15 mg PO DAILY@1500 02/23/23 02/23/23 History Trospium Chloride 20 mg PO HS@209902/23/23 02/23/23 History carvediloL [Coreg] 12.5 mg PO BID@0900,209902/23/23 02/23/23 History Furosemide [Lasix] 40 mg PO DAILY #30 tab 02/24/23 Rx Losartan [Cozaar] 50 mg PO HS #30 tab 02/24/23 Rx Spironolactone [Aldactone] 25 mg PO DAILY #30 tab 02/24/23 Rx Allergies Allergy/AdvReac Type Severity Reaction Status Date / Time No Known Allergies Allergy Verified 02/23/23 18:48 Physical Exam Vitals: Vital Signs Temp Pulse Pulse Resp BP BP BP 02/24/23 07:00 97.6 F 73 16 171/116 162/93 02/24/23 02:49 97.6 F 69 17 149/89 02/23/23 21:43 98.1 F 68 18 164/95 02/23/23 21:00 98.8 F 68 20 144/99 02/23/23 18:32 98.7 F 67 18 164/98 02/23/23 16:02 98.6 F 66 18 166/92 Pulse Ox 02/24/23 07:00 93 L 02/24/23 02:49 91 L 02/23/23 21:43 92 L 02/23/23 21:00 94 L 02/23/23 18:32 93 L 02/23/23 16:02 94 L Intake and Output 02/23/23 02/24/23 02/24/23 22:59 06:59 14:59 Output Total 1330 1700 Balance -1330 -1700 Output: Urine 1330 1700 Other: Voiding Method External Catheter External Catheter # Voids 2 Weight 111.13 kg 107.728 kg Results 02/23/23 17:02 02/24/23 05:50 Cardiac Enzymes 02/23/23 02/23/23 02/23/23 Range/Units 17:02 17:02 21:12 AST 40 (17-59) U/L Troponin I 0.022 0.029 (0.000-0.034) ng/mL 02/23/23 Range/Units 22:55 AST (17-59) U/L Troponin I 0.028 (0.000-0.034) ng/mL Coagulation 02/23/23 Range/Units 17:02 PT 13.1 H (10.0-12.5) sec APTT 33.2 H (22.0-30.0) sec CBC 02/23/23 Range/Units 17:02 WBC 5.5 (3.8-10.6) k/uL RBC 4.45 (4.30-5.90) m/uL Hgb 13.8 (13.0-17.5) gm/dL Hct 41.8 (39.0-53.0) % Plt Count 203 (150-450) k/uL Comprehensive Metabolic Panel 02/23/23 02/24/23 Range/Units 17:02 05:50 Sodium 138 140 (137-145) mmol/L Potassium 3.7 3.3 L (3.5-5.1) mmol/L Chloride 107 106 (98-107) mmol/L Carbon Dioxide 24 26 (22-30) mmol/L BUN 18 17 (9-20) mg/dL Creatinine 1.22 1.18 (0.66-1.25) mg/dL Glucose 95 98 (74-99) mg/dL Calcium 8.4 8.4 (8.4-10.2) mg/dL AST 40 (17-59) U/L ALT 36 (4-49) U/L Alkaline Phosphatase 97 (38-126) U/L Total Protein 6.1 L (6.3-8.2) g/dL Albumin 2.8 L (3.5-5.0) g/dL Current Medications Generic Name Dose Route Start Last Admin Trade Name Freq PRN Reason Stop Dose Admin Acetaminophen 650 mg 02/23/23 21:37 Acetaminophen Tab 325 Mg Tab PO Q6HR PRN Mild Pain or Fever > 100.5 Albuterol/Ipratropium 3 ml 02/23/23 21:40 Ipratropium-Albuterol 3 Ml Neb INHALATION RT-Q4H PRN Shortness Of Breath Alprazolam 0.25 mg 02/23/23 21:37 Alprazolam 0.25 Mg Tab PO Q6HR PRN Anxiety Ascorbic Acid 500 mg 02/24/23 21:00 Ascorbic Acid 500 Mg Tab PO HS@2100 [facility] Atorvastatin Calcium 40 mg 02/24/23 21:00 Atorvastatin 40 Mg Tab PO HS@2100 [facility] Carvedilol 12.5 mg 02/24/23 09:00 Carvedilol 12.5 Mg Tab PO BID@0900,2100 [facility] Citalopram Hydrobromide 20 mg 02/24/23 09:00 Citalopram Hydrobromide 20 Mg Tab PO DAILY@0900 [facility] Furosemide 40 mg 02/23/23 21:45 02/24/23 06:10 Furosemide 10 Mg/Ml 4 Ml Vial IV 40 mg Q8H [facility] Administration Levothyroxine Sodium 75 mcg 02/24/23 06:30 02/24/23 06:10 Levothyroxine 75 Mcg Tab PO 75 mcg DAILY@0630 [facility] Administration Melatonin 3 mg 02/23/23 21:37 Melatonin 3 Mg Tablet PO HS PRN Insomnia Multivitamins 1 each 02/24/23 09:00 Multivitamins, Thera 1 Each Tab PO DAILY@0900 [facility] Naloxone HCl 0.2 mg 02/23/23 21:37 Naloxone 0.4 Mg/Ml 1 Ml Vial IV Q2M PRN Opioid Reversal Nystatin 1 applic 02/24/23 06:00 02/24/23 06:10 Nystatin 100,000 Unit/Gm Powd 15 Gm TOPICAL 1 applic BID@0600,2100 [facility] Administration Ondansetron HCl 4 mg 02/23/23 21:37 Ondansetron 4 Mg/2 Ml Vial IVP Q8HR PRN Nausea And Vomiting Rivaroxaban 15 mg 02/24/23 15:00 Rivaroxaban 15 Mg Tab PO DAILY@1500 [facility] Protocol Tamsulosin HCl 0.4 mg 02/24/23 09:00 Tamsulosin 0.4 Mg Cap.Er.24h PO DAILY@0900 [facility] Trospium 20 mg 02/24/23 21:00 Trospium Chloride 20 Mg Tablet PO HS@2100 [facility] Intake and Output 02/23/23 02/24/23 02/24/23 22:59 06:59 14:59 Output Total 1330 1700 Balance -1330 -1700 Output: Urine 1330 1700 Other: Voiding Method External Catheter External Catheter # Voids 2 Weight 111.13 kg 107.728 kg 02/23/23 17:02 02/24/23 05:50
[2023-02-24 13:22] VITALS: BMI 32.2
[2023-02-24] MEDS ORDERED: FUROSEMIDE 10 MG/ML 4 ML VIAL IV STA (16:19)
[2023-02-24] MEDS ORDERED: POTASSIUM CHLORIDE ER 20 MEQ TAB.ER PO STA (16:23)
--- NOTE | 2023-02-24 16:24 | P.PN ---
Progress Note - Text Progress Note Date: 02/24/23 Chief Complaint: Leg swelling This is a pleasant 87-year-old patient, follows with Dr. Levi Pino. With chronic stable medical conditions that include atrial fibrillation, hypertension, hyperlipidemia, BPH, hypothyroid. CAD with stent. Lives at assisted living [facility]. Does use a walker at baseline. Patient complains of 2-3 months increasing leg swelling. Left greater than right. Denies any office shortness of breath. Uses one or 2 pillows at night. Denies any fever and chills. No cough. Appetite is good. No change in bowel or urine patent. Denies any pain. Able to walk about 20-30 steps. February 24: Swelling is gone down. Vincenzo wrap ordered. Son called . the nurse that feels patient is too weak to go back to the current assisted living. Now looking into rehab. field worker consulted. Eating fair. PTOT consult. Lower extremity edema better. Seen by card ALLERGY. Changed over to by mouth Lasix. Give 1 dose of IV Lasix 40 mg 1. Active Medications Acetaminophen (Acetaminophen Tab 325 Mg Tab) 650 mg PO Q6HR PRN PRN Reason: Mild Pain or Fever > 100.5 Albuterol/Ipratropium (Ipratropium-Albuterol 3 Ml Neb) 3 ml INHALATION RT-Q4H PRN PRN Reason: Shortness Of Breath Alprazolam (Alprazolam 0.25 Mg Tab) 0.25 mg PO Q6HR PRN PRN Reason: Anxiety Ascorbic Acid (Ascorbic Acid 500 Mg Tab) 500 mg PO HS@2100 [facility] Atorvastatin Calcium (Atorvastatin 40 Mg Tab) 40 mg PO HS@2100 [facility] Carvedilol (Carvedilol 12.5 Mg Tab) 12.5 mg PO BID@0900,2100 [facility] Last Admin: 02/24/23 09:50 Dose: 12.5 mg Citalopram Hydrobromide (Citalopram Hydrobromide 20 Mg Tab) 20 mg PO DAILY@0900 [facility] Last Admin: 02/24/23 09:49 Dose: 20 mg Furosemide (Furosemide 40 Mg Tab) 40 mg PO DAILY [facility] Last Admin: 02/24/23 09:56 Dose: 40 mg Levothyroxine Sodium (Levothyroxine 75 Mcg Tab) 75 mcg PO DAILY@0630 [facility] Last Admin: 02/24/23 06:10 Dose: 75 mcg Melatonin (Melatonin 3 Mg Tablet) 3 mg PO HS PRN PRN Reason: Insomnia Multivitamins (Multivitamins, Thera 1 Each Tab) 1 each PO DAILY@0900 [facility] Last Admin: 02/24/23 09:49 Dose: 1 each Naloxone HCl (Naloxone 0.4 Mg/Ml 1 Ml Vial) 0.2 mg IV Q2M PRN PRN Reason: Opioid Reversal Nystatin (Nystatin 100,000 Unit/Gm Powd 15 Gm) 1 applic TOPICAL BID@0600,2100 [facility] Last Admin: 02/24/23 06:10 Dose: 1 applic Ondansetron HCl (Ondansetron 4 Mg/2 Ml Vial) 4 mg IVP Q8HR PRN PRN Reason: Nausea And Vomiting Rivaroxaban (Rivaroxaban 15 Mg Tab) 15 mg PO DAILY@1500 [facility]; Protocol Spironolactone (Spironolactone 25 Mg Tab) 25 mg PO DAILY [facility] Last Admin: 02/24/23 09:49 Dose: 25 mg Tamsulosin HCl (Tamsulosin 0.4 Mg Cap.Er.24h) 0.4 mg PO DAILY@0900 [facility] Last Admin: 02/24/23 09:49 Dose: 0.4 mg Trospium (Trospium Chloride 20 Mg Tablet) 20 mg PO HS@2100 [facility] Past medical history to include: Atrial fibrillation, hyperlipidemia, hypertension, prostate disorder, hypothyroid, colon cancer, CAD with stent cardiac ablation for atrial fibrillation Social history: Lives at [facility] [place]. Previous smoker. No alcohol. Physical examination: VITAL SIGNS: 98.8, 72, 18, 132/83, 94% room air GENERAL: Up in a recliner, comfortable EYES: Pupils equal. Conjunctiva normal. HEENT: External appearance of nose and ears normal, oral cavity grossly normal. Decreased hearing NECK: JVD not raised; masses not palpable. HEART: [First and second heart sounds are normal; edema and lower extremity left greater than right: Better. LUNGS:[ Respiratory rate normal; few basal crackles. ABDOMEN: Soft, nontender, liver spleen not palpable, no masses palpable. PSYCH: Patient is able to answer questions but intermittently forgetfull. MUSCULOSKELETAL:No Clubbing/cyanosis;muscles-grossly intact. OA INVESTIGATIONS, reviewed in the clinical context: 2-D echo shows EF 55/60% February 24: Sodium 140 potassium 3.3 creatinine 1.18 White count 5.5 hemoglobin 13.8 platelets 203 sodium 138 potassium 3.7 BUN 18 creatinine 1.2 to Troponin I 0.022 ProBNP 1750 EKG tracing personally reviewed by me-atrial flutter, rate 67 Chest x-ray film personally reviewed by me-cardiomegaly, pulmonary edema Assessment and plan: -Acute congestive heart failure exacerbation. From diastolic dysfunction EF 55- 60% IV Lasix given. Strict I's and O's. Fluid restriction 2000 mL a day. Changed today to by mouth Lasix 40 mg a day. -Depression and anxiety not otherwise specified Celexa 20 mg a day -Hypothyroid Synthroid 75 g a day -BPH Flomax 0.4 mg a day -Persistent atrial flutter fibrillation, rate controlled Xarelto 50 mg a day -Essential hypertension Coreg 12.5 mg by mouth twice a day -Hyperlipidemia Lipitor 40 mg daily at bedtime -CAD with a prior history of stent Coreg, Lipitor -Chronic medical debility, uses a walker at baseline -Acute medical debility. Consult PTOT. Case medicine looking at inpatient rehab. 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 He had questions. Unscented. Wishes to proceed with DO NOT RESUSCITATE Time spent for this about 25 minutes 1 dose of IV Lasix 40 mg daily. Changed to by mouth Lasix. Looking at inpatient rehab.
[2023-02-24] MEDS: RIVAROXABAN 15 MG TAB PO SCH (16:39)
[2023-02-24] MEDS: ATORVASTATIN 40 MG TAB PO SCH (21:23)
[2023-02-24] MEDS: ASCORBIC ACID 500 MG TAB PO SCH (21:23)
[2023-02-24] MEDS: TROSPIUM CHLORIDE 20 MG TABLET PO SCH (21:23)
[2023-02-25] MEDS: LEVOTHYROXINE 75 MCG TAB PO SCH (06:11)
[2023-02-25] MEDS: NYSTATIN 100,000 UNIT/GM POWD 15 GM TOPICAL SCH ×2 (06:11→21:05)
[2023-02-25 06:33] LABS: African American GFR (CKD) 68 (>60 ml/min/1.73 sqM); Anion Gap 9 mmol/L; Blood Urea Nitrogen 15 mg/dL (9-20); Calcium 8.6 mg/dL (8.4-10.2); Carbon Dioxide 25 mmol/L (22-30); Chloride 104 mmol/L (98-107); Glucose 100 mg/dL (74-99); Non-African American GFR(CKD) 58 (>60 ml/min/1.73 sqM); Potassium 3.6 mmol/L (3.5-5.1); Sodium 138 mmol/L (137-145)
[2023-02-25] MEDS: CITALOPRAM HYDROBROMIDE 20 MG TAB PO SCH (09:16)
[2023-02-25] MEDS: SPIRONOLACTONE 25 MG TAB PO SCH (09:16)
[2023-02-25] MEDS: MULTIVITAMINS, THERA 1 EACH TAB PO SCH (09:16)
[2023-02-25] MEDS: carvediloL 12.5 MG TAB PO SCH ×2 (09:16→21:05)
[2023-02-25] MEDS: FUROSEMIDE 40 MG TAB PO SCH (09:16)
[2023-02-25] MEDS: TAMSULOSIN 0.4 MG CAP.ER.24H PO SCH (09:16)
[2023-02-25] MEDS ORDERED: LOSARTAN 50 MG TAB PO STA ×2 (12:20→23:36)
[2023-02-25] MEDS: RIVAROXABAN 15 MG TAB PO SCH (15:20)
[2023-02-25] MEDS: ASCORBIC ACID 500 MG TAB PO SCH (21:05)
[2023-02-25] MEDS: ATORVASTATIN 40 MG TAB PO SCH (21:05)
[2023-02-25] MEDS: TROSPIUM CHLORIDE 20 MG TABLET PO SCH (21:05)
--- NOTE | 2023-02-25 23:39 | P.PN ---
Progress Note - Text Progress Note Date: 02/25/23 Chief Complaint: Leg swelling This is a pleasant 87-year-old patient, follows with Dr. Levi Pino. With chronic stable medical conditions that include atrial fibrillation, hypertension, hyperlipidemia, BPH, hypothyroid. CAD with stent. Lives at assisted living [facility]. Does use a walker at baseline. Patient complains of 2-3 months increasing leg swelling. Left greater than right. Denies any office shortness of breath. Uses one or 2 pillows at night. Denies any fever and chills. No cough. Appetite is good. No change in bowel or urine patent. Denies any pain. Able to walk about 20-30 steps. February 24: Swelling is gone down. Vincenzo wrap ordered. Son called . the nurse that feels patient is too weak to go back to the current assisted living. Now looking into rehab. central supply worker consulted. Eating fair. PTOT consult. Lower extremity edema better. Seen by cardiology. Changed over to by mouth Lasix. Give 1 dose of IV Lasix 40 mg 1. February 25: Declining bed. Comfortable. Losartan was added yesterday for blood pressure. Authorization pending. He will go to rehab. Increase losartan to 100 mg daily at bedtime from tomorrow. Active Medications Acetaminophen (Acetaminophen Tab 325 Mg Tab) 650 mg PO Q6HR PRN PRN Reason: Mild Pain or Fever > 100.5 Albuterol/Ipratropium (Ipratropium-Albuterol 3 Ml Neb) 3 ml INHALATION RT-Q4H PRN PRN Reason: Shortness Of Breath Alprazolam (Alprazolam 0.25 Mg Tab) 0.25 mg PO Q6HR PRN PRN Reason: Anxiety Ascorbic Acid (Ascorbic Acid 500 Mg Tab) 500 mg PO HS@2100 [facility] Last Admin: 02/25/23 21:05 Dose: 500 mg Atorvastatin Calcium (Atorvastatin 40 Mg Tab) 40 mg PO HS@2100 [facility] Last Admin: 02/25/23 21:05 Dose: 40 mg Carvedilol (Carvedilol 12.5 Mg Tab) 12.5 mg PO BID@0900,2100 [facility] Last Admin: 02/25/23 21:05 Dose: 12.5 mg Citalopram Hydrobromide (Citalopram Hydrobromide 20 Mg Tab) 20 mg PO DAILY@0900 [facility] Last Admin: 02/25/23 09:16 Dose: 20 mg Furosemide (Furosemide 40 Mg Tab) [address] [facility] Last Admin: 02/25/23 09:16 Dose: 40 mg Levothyroxine Sodium (Levothyroxine 75 Mcg Tab) 75 mcg PO DAILY@0630 [facility] Last Admin: 02/25/23 06:11 Dose: 75 mcg Losartan Potassium (Losartan 50 Mg Tab) [address] [facility] Melatonin (Melatonin 3 Mg Tablet) 3 mg PO HS PRN PRN Reason: Insomnia Multivitamins (Multivitamins, Thera 1 Each Tab) 1 each PO DAILY@0900 [facility] Last Admin: 02/25/23 09:16 Dose: 1 each Naloxone HCl (Naloxone 0.4 Mg/Ml 1 Ml Vial) 0.2 mg IV Q2M PRN PRN Reason: Opioid Reversal Nystatin (Nystatin 100,000 Unit/Gm Powd 15 Gm) 1 applic TOPICAL BID@0600,2100 [facility] Last Admin: 02/25/23 21:05 Dose: 1 applic Ondansetron HCl (Ondansetron 4 Mg/2 Ml Vial) 4 mg IVP Q8HR PRN PRN Reason: Nausea And Vomiting Rivaroxaban (Rivaroxaban 15 Mg Tab) 15 mg PO DAILY@1500 [facility]; Protocol Last Admin: 02/25/23 15:20 Dose: 15 mg Spironolactone (Spironolactone 25 Mg Tab) [address] [facility] Last Admin: 02/25/23 09:16 Dose: 25 mg Tamsulosin HCl (Tamsulosin 0.4 Mg Cap.Er.24h) 0.4 mg PO DAILY@0900 [facility] Last Admin: 02/25/23 09:16 Dose: 0.4 mg Trospium (Trospium Chloride 20 Mg Tablet) 20 mg PO HS@2100 [facility] Last Admin: 02/25/23 21:05 Dose: 20 mg Past medical history to include: Atrial fibrillation, hyperlipidemia, hypertension, prostate disorder, hypothyroid, colon cancer, CAD with stent cardiac ablation for atrial fibrillation Social history: Lives at [facility] [employer]. Previous smoker. No alcohol. Physical examination: VITAL SIGNS: 98.4, 64, 16, 1 58 x 102, 94% room air GENERAL: Up in a recliner, comfortable EYES: Pupils equal. Conjunctiva normal. HEENT: External appearance of nose and ears normal, oral cavity grossly normal. Decreased hearing NECK: JVD not raised; masses not palpable. HEART: [First and second heart sounds are normal; edema and lower extremity left greater than right: Better. LUNGS:[ Respiratory rate normal; few basal crackles. ABDOMEN: Soft, nontender, liver spleen not palpable, no masses palpable. PSYCH: Patient is able to answer questions but intermittently forgetfull. MUSCULOSKELETAL:No Clubbing/cyanosis;muscles-grossly intact. OA INVESTIGATIONS, reviewed in the clinical context: 2-D echo shows EF 55/60% February 24: Sodium 140 potassium 3.3 creatinine 1.18 White count 5.5 hemoglobin 13.8 platelets 203 sodium 138 potassium 3.7 BUN 18 creatinine 1.2 to Troponin I 0.022 ProBNP 1750 EKG tracing personally reviewed by me-atrial flutter, rate 67 Chest x-ray film personally reviewed by me-cardiomegaly, pulmonary edema Assessment and plan: -Acute congestive heart failure exacerbation. From diastolic dysfunction EF 55- 60% IV Lasix given. Strict I's and O's. Fluid restriction 2000 mL a day. Lasix 40 mg a day. -Depression and anxiety not otherwise specified Celexa 20 mg a day -Hypothyroid Synthroid 75 g a day -BPH Flomax 0.4 mg a day -Persistent atrial flutter fibrillation, rate controlled Xarelto 50 mg a day -Essential hypertension: Uncontrolled Coreg 12.5 mg by mouth twice a day Cozaar increased to 100 mg hs -Hyperlipidemia Lipitor 40 mg daily at bedtime -CAD with a prior history of stent Coreg, Lipitor -Chronic medical debility, uses a walker at baseline -Acute medical debility. Consult PTOT. Case medicine looking at inpatient rehab. 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 He had questions. Unscented. Wishes to proceed with DO NOT RESUSCITATE Time spent for this about 25 minutes Cozaar increased to 100 mg hs Other medications to continue. Pending rehab.
[2023-02-26] MEDS: LEVOTHYROXINE 75 MCG TAB PO SCH (06:42)
[2023-02-26] MEDS: NYSTATIN 100,000 UNIT/GM POWD 15 GM TOPICAL SCH ×2 (06:43→20:07)
[2023-02-26] MEDS: TAMSULOSIN 0.4 MG CAP.ER.24H PO SCH (08:51)
[2023-02-26] MEDS: SPIRONOLACTONE 25 MG TAB PO SCH (08:51)
[2023-02-26] MEDS: CITALOPRAM HYDROBROMIDE 20 MG TAB PO SCH (08:51)
[2023-02-26] MEDS: MULTIVITAMINS, THERA 1 EACH TAB PO SCH (08:51)
[2023-02-26] MEDS: FUROSEMIDE 40 MG TAB PO SCH (08:51)
[2023-02-26] MEDS: carvediloL 12.5 MG TAB PO SCH ×2 (08:51→20:07)
--- NOTE | 2023-02-26 11:38 | P.DS ---
Providers Date of admission: 02/24/23 13:37 Expected date of discharge: 02/26/23 Attending physician: Tremaine Madden Consults: 02/23/23 18:39 Consult Physician Routine Consulting Provider: Esther Yee Consult Reason/Comments: chf Do you want consulting provider notified?: Yes Primary care physician: Levi Guerra [facility] Course: Chief Complaint: Leg swelling This is a pleasant 87-year-old patient, follows with Dr. Levi Pino. With chronic stable medical conditions that include atrial fibrillation, hypertension, hyperlipidemia, BPH, hypothyroid. CAD with stent. Lives at assisted [facility]. Does use a walker at baseline. Patient complains of 2-3 months increasing leg swelling. Left greater than right. Denies any office shortness of breath. Uses one or 2 pillows at night. Denies any fever and chills. No cough. Appetite is good. No change in bowel or urine patent. Denies any pain. Able to walk about 20-30 steps. February 24: Swelling is gone down. Vincenzo wrap ordered. Son called the nurse that feels patient is too weak to go back to the current assisted living. Now looking into rehab. kitchen and counter worker consulted. Eating fair. PTOT consult. Lower extremity edema better. Seen by cardiology. Changed over to by mouth Lasix. Give 1 dose of IV Lasix 40 mg 1. February 25: Declining bed. Comfortable. Losartan was added yesterday for blood pressure. Authorization pending. He will go to rehab. Increase losartan to 100 mg daily at bedtime from tomorrow. February 26: Blood pressure well controlled. Stable. Eating well. Discharge to rehab today.OBRA completed. Questions answered. Discussion and discharge planning more than 35 minutes Past medical history to include: Atrial fibrillation, hyperlipidemia, hypertension, prostate disorder, hypothyroid, colon cancer, CAD with stent cardiac ablation for atrial fibrillation Social history: Lives at [facility]. Previous smoker. No alcohol. Physical examination: VITAL SIGNS: 97.5, 69, 16, 139/92, 95% room air GENERAL: comfortable EYES: Pupils equal. Conjunctiva normal. HEENT: External appearance of nose and ears normal, oral cavity grossly normal. Decreased hearing NECK: JVD not raised; masses not palpable. HEART: [First and second heart sounds are normal; edema and lower extremity left greater than right: Better. LUNGS:[ Respiratory rate normal; few basal crackles. ABDOMEN: Soft, nontender, liver spleen not palpable, no masses palpable. PSYCH: Patient is able to answer questions but intermittently forgetfull. MUSCULOSKELETAL:No Clubbing/cyanosis;muscles-grossly intact. OA INVESTIGATIONS, reviewed in the clinical context: February 25: Potassium 3.6 creatinine 1.13 2-D echo shows EF 55/60% February 24: Sodium 140 potassium 3.3 creatinine 1.18 White count 5.5 hemoglobin 13.8 platelets 203 sodium 138 potassium 3.7 BUN 18 creatinine 1.2 to Troponin I 0.022 ProBNP 1750 EKG tracing personally reviewed by me-atrial flutter, rate 67 Chest x-ray film personally reviewed by me-cardiomegaly, pulmonary edema Assessment and plan: -Acute congestive heart failure exacerbation. From diastolic dysfunction EF 55- 60% IV Lasix given. Strict I's and O's. Fluid restriction 2000 mL a day. Lasix 40 mg a day. -Depression and anxiety not otherwise specified Celexa 20 mg a day -Hypothyroid Synthroid 75 g a day -BPH Flomax 0.4 mg a day -Persistent atrial flutter fibrillation, rate controlled Xarelto 50 mg a day -Essential hypertension: Stable Coreg 12.5 mg by mouth twice a day Cozaar 100 mg hs -Hyperlipidemia Lipitor 40 mg daily at bedtime -CAD with a prior history of stent Coreg, Lipitor -Chronic medical debility, uses a walker at baseline -Acute medical debility. Consult PTOT. Case medicine looking at inpatient rehab. 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 He had questions. Unscented. Wishes to proceed with DO NOT RESUSCITATE Time spent for this about 25 minutes Disposition: [facility], rehab Plan - Discharge Summary New Discharge Prescriptions: New Spironolactone [Aldactone] 25 mg PO DAILY #30 tab Furosemide [Lasix] 40 mg PO DAILY #30 tab Losartan [Cozaar] 100 mg PO HS tab Continue Tamsulosin [Flomax] 0.4 mg PO DAILY@0900 Citalopram Hydrobromide [CeleXA] 20 mg PO DAILY@0900 Atorvastatin [Lipitor] 40 mg PO HS@2100 Menthol-Zinc Oxide Oint [Calmoseptine Ointment] 1 applic TOPICAL BID@599,2099 Trospium Chloride 20 mg PO HS@2099 Ascorbic Acid [Vitamin C] 500 mg PO HS@2099 carvediloL [Coreg] 12.5 mg PO BID@899,2099 Docusate Sodium [Dok] 100 mg PO BID@899,2099 Multivitamins, Thera [Multivitamin (formulary)] 1 tab PO DAILY@09 Miconazole Nitrate 2% Powder 1 applic TOPICAL BID@06,2099 Acetaminophen Tab [Tylenol] 650 mg PO Q6H PRN PRN Reason: Fever And/ Or Pain Rivaroxaban [Xarelto] 15 mg PO DAILY@1500 Levothyroxine Sodium [Synthroid] 75 mcg PO DAILY@0700 Cholecalciferol [Vitamin D3 (25 Mcg = 1000 Iu)] 50 mcg PO DAILY@09 Ipratropium-Albuterol Nebulize [Duoneb 0.5 mg-3 mg/3 ml Soln] 3 ml INHALATION RT-Q4H PRN PRN Reason: Shortness Of Breath Discharge Medication List Atorvastatin [Lipitor] 40 mg PO HS@209902/13/18 [History] Citalopram Hydrobromide [CeleXA] 20 mg PO DAILY@89902/13/18 [History] Tamsulosin [Flomax] 0.4 mg PO DAILY@89902/13/18 [History] Acetaminophen Tab [Tylenol] 650 mg PO Q6H PRN 02/23/23 [History] Ascorbic Acid [Vitamin C] 500 mg PO HS@209902/23/23 [History] Cholecalciferol [Vitamin D3 (25 Mcg = 1000 Iu)] 50 mcg PO DAILY@0902/23/23 [History] Docusate Sodium [Dok] 100 mg PO BID@899,209902/23/23 [History] Ipratropium-Albuterol Nebulize [Duoneb 0.5 mg-3 mg/3 ml Soln] 3 ml INHALATION RT-Q4H PRN 02/23/23 [History] Levothyroxine Sodium [Synthroid] 75 mcg PO DAILY@0700 02/23/23 [History] Menthol-Zinc Oxide Oint [Calmoseptine Ointment] 1 applic TOPICAL BID@0600,209902/23/23 [History] Miconazole Nitrate 2% Powder 1 applic TOPICAL BID@06,209902/23/23 [History] Multivitamins, Thera [Multivitamin (formulary)] 1 tab PO DAILY@0900 02/23/23 [History] Rivaroxaban [Xarelto] 15 mg PO DAILY@1500 02/23/23 [History] Trospium Chloride 20 mg PO HS@209902/23/23 [History] carvediloL [Coreg] 12.5 mg PO BID@0900,209902/23/23 [History] Furosemide [Lasix] 40 mg PO DAILY #30 tab 02/24/23 [Rx] Spironolactone [Aldactone] 25 mg PO DAILY #30 tab 02/24/23 [Rx] Losartan [Cozaar] 100 mg PO HS tab 02/26/23 [Rx] Follow up Appointment(s)/Referral(s): 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 or ER for worsening symptoms, problems, or concerns.
[2023-02-26] MEDS: RIVAROXABAN 15 MG TAB PO SCH (17:05)
[2023-02-26] MEDS: ATORVASTATIN 40 MG TAB PO SCH (20:07)
[2023-02-26] MEDS: ASCORBIC ACID 500 MG TAB PO SCH (20:07)
[2023-02-26] MEDS: TROSPIUM CHLORIDE 20 MG TABLET PO SCH (20:07)
[2023-02-26] MEDS ORDERED: LOSARTAN 50 MG TAB PO SCH ×2 (21:00)
[2023-02-27 03:30] VITALS: RESP 16
[2023-02-27] MEDS: LEVOTHYROXINE 75 MCG TAB PO SCH (05:52)
[2023-02-27] MEDS: NYSTATIN 100,000 UNIT/GM POWD 15 GM TOPICAL SCH (05:52)
[2023-02-27 08:10] VITALS: BP 154/98; PULSE 50; TEMP 98
[2023-02-27] MEDS: MULTIVITAMINS, THERA 1 EACH TAB PO SCH (09:16)
[2023-02-27] MEDS: TAMSULOSIN 0.4 MG CAP.ER.24H PO SCH (09:16)
[2023-02-27] MEDS: FUROSEMIDE 40 MG TAB PO SCH (09:16)
[2023-02-27] MEDS: SPIRONOLACTONE 25 MG TAB PO SCH (09:16)
[2023-02-27] MEDS: carvediloL 12.5 MG TAB PO SCH (09:17)
[2023-02-27] MEDS: CITALOPRAM HYDROBROMIDE 20 MG TAB PO SCH (09:17)
--- NOTE | 2023-02-27 10:34 | P.PN ---
Progress Note - Text Progress Note Date: 02/26/23 Chief Complaint: Leg swelling This is a pleasant 87-year-old patient, follows with Dr. Levi Pino. With chronic stable medical conditions that include atrial fibrillation, hypertension, hyperlipidemia, BPH, hypothyroid. CAD with stent. Lives at assisted living [facility]. Does use a walker at baseline. Patient complains of 2-3 months increasing leg swelling. Left greater than right. Denies any office shortness of breath. Uses one or 2 pillows at night. Denies any fever and chills. No cough. Appetite is good. No change in bowel or urine patent. Denies any pain. Able to walk about 20-30 steps. February 24: Swelling is gone down. Vincenzo wrap ordered. Son called . the nurse that feels patient is too weak to go back to the current assisted living. Now looking into rehab. restaurant worker consulted. Eating fair. PTOT consult. Lower extremity edema better. Seen by cardiology. Changed over to by mouth Lasix. Give 1 dose of IV Lasix 40 mg 1. February 25: Declining bed. Comfortable. Losartan was added yesterday for blood pressure. Authorization pending. He will go to rehab. Increase losartan to 100 mg daily at bedtime from tomorrow. February 26: Blood pressure well controlled. Stable. Eating well. Discharge to rehab today.OBRA completed. Questions answered. Patient needs 3 nights stay before she can go to rehab tomorrow. Current medications reviewed Past medical history to include: Atrial fibrillation, hyperlipidemia, hypertension, prostate disorder, hypothyroid, colon cancer, CAD with stent cardiac ablation for atrial fibrillation Social history: Lives at [facility]. Previous smoker. No alcohol. Physical examination: VITAL SIGNS: 97.5, 69, 16, 139/92, 95% room air GENERAL: comfortable EYES: Pupils equal. Conjunctiva normal. HEENT: External appearance of nose and ears normal, oral cavity grossly normal. Decreased hearing NECK: JVD not raised; masses not palpable. HEART: [First and second heart sounds are normal; edema and lower extremity left greater than right: Better. LUNGS:[ Respiratory rate normal; few basal crackles. ABDOMEN: Soft, nontender, liver spleen not palpable, no masses palpable. PSYCH: Patient is able to answer questions but intermittently forgetfull. MUSCULOSKELETAL:No Clubbing/cyanosis;muscles-grossly intact. OA INVESTIGATIONS, reviewed in the clinical context: February 25: Potassium 3.6 creatinine 1.13 2-D echo shows EF 55/60% February 24: Sodium 140 potassium 3.3 creatinine 1.18 White count 5.5 hemoglobin 13.8 platelets 203 sodium 138 potassium 3.7 BUN 18 creatinine 1.2 to Troponin I 0.022 ProBNP 1750 EKG tracing personally reviewed by me-atrial flutter, rate 67 Chest x-ray film personally reviewed by me-cardiomegaly, pulmonary edema Assessment and plan: -Acute congestive heart failure exacerbation. From diastolic dysfunction EF 55- 60% IV Lasix given. Strict I's and O's. Fluid restriction 2000 mL a day. Lasix 40 mg a day. -Depression and anxiety not otherwise specified Celexa 20 mg a day -Hypothyroid Synthroid 75 g a day -BPH Flomax 0.4 mg a day -Persistent atrial flutter fibrillation, rate controlled Xarelto 50 mg a day -Essential hypertension: Stable Coreg 12.5 mg by mouth twice a day Cozaar 100 mg hs -Hyperlipidemia Lipitor 40 mg daily at bedtime -CAD with a prior history of stent Coreg, Lipitor -Chronic medical debility, uses a walker at baseline -Acute medical debility. Consult PTOT. Case medicine looking at inpatient rehab. 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 He had questions. Unscented. Wishes to proceed with DO NOT RESUSCITATE Time spent for this about 25 minutes Patient waiting for 3Nights stay so can go to rehab tomorrow. Discussed.
--- NOTE | 2023-02-27 10:37 | P.DS ---
Providers Date of admission: 02/24/23 13:37 Expected date of discharge: 02/27/23 Attending physician: Tremaine Madden Consults: 02/23/23 18:39 Consult Physician Routine Consulting Provider: Esther Yee Consult Reason/Comments: chf Do you want consulting provider notified?: Yes Primary care physician: Levi Guerra [facility] Course: Chief Complaint: Leg swelling This is a pleasant 87-year-old patient, follows with Dr. Levi Pino. With chronic stable medical conditions that include atrial fibrillation, hypertension, hyperlipidemia, BPH, hypothyroid. CAD with stent. Lives at [facility] [facility]. Does use a walker at baseline. Patient complains of 2-3 months increasing leg swelling. Left greater than right. Denies any office shortness of breath. Uses one or 2 pillows at night. Denies any fever and chills. No cough. Appetite is good. No change in bowel or urine patent. Denies any pain. Able to walk about 20-30 steps. February 24: Swelling is gone down. Vincenzo wrap ordered. Son called the nurse that feels patient is too weak to go back to the current assisted living. Now looking into rehab. hot stick worker consulted. Eating fair. PTOT consult. Lower extremity edema better. Seen by cardiology. Changed over to by mouth Lasix. Give 1 dose of IV Lasix 40 mg 1. February 25: Declining bed. Comfortable. Losartan was added yesterday for blood pressure. Authorization pending. He will go to rehab. Increase losartan to 100 mg daily at bedtime from tomorrow. February 26: Blood pressure well controlled. Stable. Eating well. Discharge to rehab today.OBRA completed. Questions answered. Still would DC today. Past medical history to include: Atrial fibrillation, hyperlipidemia, hypertension, prostate disorder, hypothyroid, colon cancer, CAD with stent cardiac ablation for atrial fibrillation Social history: Lives at [employer] [facility]. Previous smoker. No alcohol. Physical examination: VITAL SIGNS: 98, 50, 16, 1 54 x 98, 96% room air GENERAL: comfortable EYES: Pupils equal. Conjunctiva normal. HEENT: External appearance of nose and ears normal, oral cavity grossly normal. Decreased hearing NECK: JVD not raised; masses not palpable. HEART: [First and second heart sounds are normal; edema and lower extremity left greater than right: Better. LUNGS:[ Respiratory rate normal; few basal crackles. ABDOMEN: Soft, nontender, liver spleen not palpable, no masses palpable. PSYCH: Patient is able to answer questions but intermittently forgetfull. MUSCULOSKELETAL:No Clubbing/cyanosis;muscles-grossly intact. OA INVESTIGATIONS, reviewed in the clinical context: February 25: Potassium 3.6 creatinine 1.13 2-D echo shows EF 55/60% February 24: Sodium 140 potassium 3.3 creatinine 1.18 White count 5.5 hemoglobin 13.8 platelets 203 sodium 138 potassium 3.7 BUN 18 creatinine 1.2 to Troponin I 0.022 ProBNP 1750 EKG tracing personally reviewed by me-atrial flutter, rate 67 Chest x-ray film personally reviewed by me-cardiomegaly, pulmonary edema Assessment and plan: -Acute congestive heart failure exacerbation. From diastolic dysfunction EF 55- 60% IV Lasix given. Strict I's and O's. Fluid restriction 2000 mL a day. Lasix 40 mg a day. -Depression and anxiety not otherwise specified Celexa 20 mg a day -Hypothyroid Synthroid 75 g a day -BPH Flomax 0.4 mg a day -Persistent atrial flutter fibrillation, rate controlled Xarelto 50 mg a day -Essential hypertension: Stable Coreg 12.5 mg by mouth twice a day Cozaar 100 mg hs -Hyperlipidemia Lipitor 40 mg daily at bedtime -CAD with a prior history of stent Coreg, Lipitor -Chronic medical debility, uses a walker at baseline -Acute medical debility. Consult PTOT. Case medicine looking at inpatient rehab. 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 He had questions. Unscented. Wishes to proceed with DO NOT RESUSCITATE Time spent for this about 25 minutes Disposition: [facility] [place], rehab Plan - Discharge Summary New Discharge Prescriptions: New Spironolactone [Aldactone] 25 mg PO DAILY #30 tab Furosemide [Lasix] 40 mg PO DAILY #30 tab Losartan [Cozaar] 100 mg PO HS tab Continue Tamsulosin [Flomax] 0.4 mg PO DAILY@0900 Citalopram Hydrobromide [CeleXA] 20 mg PO DAILY@0900 Atorvastatin [Lipitor] 40 mg PO HS@2100 Menthol-Zinc Oxide Oint [Calmoseptine Ointment] 1 applic TOPICAL BID@599,2099 Trospium Chloride 20 mg PO HS@2099 Ascorbic Acid [Vitamin C] 500 mg PO HS@2099 carvediloL [Coreg] 12.5 mg PO BID@899,2099 Docusate Sodium [Dok] 100 mg PO BID@899,2099 Multivitamins, Thera [Multivitamin (formulary)] 1 tab PO DAILY@09 Miconazole Nitrate 2% Powder 1 applic TOPICAL BID@599,2099 Acetaminophen Tab [Tylenol] 650 mg PO Q6H PRN PRN Reason: Fever And/ Or Pain Rivaroxaban [Xarelto] 15 mg PO DAILY@1500 Levothyroxine Sodium [Synthroid] 75 mcg PO DAILY@0700 Cholecalciferol [Vitamin D3 (25 Mcg = 1000 Iu)] 50 mcg PO DAILY@09 Ipratropium-Albuterol Nebulize [Duoneb 0.5 mg-3 mg/3 ml Soln] 3 ml INHALATION RT-Q4H PRN PRN Reason: Shortness Of Breath Discharge Medication List Atorvastatin [Lipitor] 40 mg PO HS@209902/13/18 [History] Citalopram Hydrobromide [CeleXA] 20 mg PO DAILY@89902/13/18 [History] Tamsulosin [Flomax] 0.4 mg PO DAILY@0902/13/18 [History] Acetaminophen Tab [Tylenol] 650 mg PO Q6H PRN 02/23/23 [History] Ascorbic Acid [Vitamin C] 500 mg PO HS@209902/23/23 [History] Cholecalciferol [Vitamin D3 (25 Mcg = 1000 Iu)] 50 mcg PO DAILY@0900 02/23/23 [History] Docusate Sodium [Dok] 100 mg PO BID@899,209902/23/23 [History] Ipratropium-Albuterol Nebulize [Duoneb 0.5 mg-3 mg/3 ml Soln] 3 ml INHALATION RT-Q4H PRN 02/23/23 [History] Levothyroxine Sodium [Synthroid] 75 mcg PO DAILY@0700 02/23/23 [History] Menthol-Zinc Oxide Oint [Calmoseptine Ointment] 1 applic TOPICAL BID@0600,209902/23/23 [History] Miconazole Nitrate 2% Powder 1 applic TOPICAL BID@0600,209902/23/23 [History] Multivitamins, Thera [Multivitamin (formulary)] 1 tab PO DAILY@0900 02/23/23 [History] Rivaroxaban [Xarelto] 15 mg PO DAILY@1500 02/23/23 [History] Trospium Chloride 20 mg PO HS@209902/23/23 [History] carvediloL [Coreg] 12.5 mg PO BID@0900,209902/23/23 [History] Furosemide [Lasix] 40 mg PO DAILY #30 tab 02/24/23 [Rx] Spironolactone [Aldactone] 25 mg PO DAILY #30 tab 02/24/23 [Rx] Losartan [Cozaar] 100 mg PO HS tab 02/26/23 [Rx] Follow up Appointment(s)/Referral(s): 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 or ER for worsening symptoms, problems, or concerns.
== END 2023-02-27 13:53 | DRG 291 ==
LOC: EC 15:37 → 6NMEDSUR 18:39 → OBSVTOIN 02-24 13:37
PROVIDERS: ADMIT Hospitalist; ATTEND Hospitalist
DX: I11.0 Hypertensive heart disease with heart failure (principal); I50.33 Acute on chronic diastolic (congestive) heart failure; I48.19 Other persistent atrial fibrillation; F02.818 Dementia in other diseases classified elsewhere, unspecified severity, with other behavioral disturbance; F02.83 Dementia in other diseases classified elsewhere, unspecified severity, with mood disturbance; F02.84 Dementia in other diseases classified elsewhere, unspecified severity, with anxiety; I48.92 Unspecified atrial flutter; I67.4 Hypertensive encephalopathy; F32.A Depression, unspecified; G30.9 Alzheimer's disease, unspecified; G47.00 Insomnia, unspecified; Z85.038 Personal history of other malignant neoplasm of large intestine; Z79.01 Long term (current) use of anticoagulants; E03.9 Hypothyroidism, unspecified; E78.5 Hyperlipidemia, unspecified; I25.10 Atherosclerotic heart disease of native coronary artery without angina pectoris; R53.81 Other malaise; N40.1 Benign prostatic hyperplasia with lower urinary tract symptoms; Z66 Do not resuscitate; Z79.82 Long term (current) use of aspirin; Z79.890 Hormone replacement therapy; Z79.899 Other long term (current) drug therapy; Z80.0 Family history of malignant neoplasm of digestive organs; Z87.891 Personal history of nicotine dependence; Z95.5 Presence of coronary angioplasty implant and graft; Z71.3 Dietary counseling and surveillance; Z28.311 Partially vaccinated for COVID-19; Z28.21 Immunization not carried out because of patient refusal; Z86.010 Personal history of colon polyps
CPT/HCPCS: 36415; 71046; 80048; 80053; 83735; 83880; 84100; 84132; 84484; 85025; 85610; 85730; 93005; 93306; 96374; 99285

== ENCOUNTER 2023-04-28 15:44 | Emergency (ER) | payer MEDICARE, BC ==
[2023-04-28 16:10] VITALS: RESP 18; TEMP 98.5
--- NOTE | 2023-04-28 17:29 | ED ---
General Adult HPI - General Chief complaint: Nausea/Vomiting/Diarrhea Stated complaint: NVD Time Seen by Provider: 04/28/23 15:46 Source: patient, EMS Mode of arrival: EMS Limitations: no limitations - History of Present Illness Initial comments: Dictation was produced using [employer] dictation software. please excuse any grammatical, word or spelling errors. Chief Complaint: 87-year-old male with acute on chronic diarrhea History of Present Illness: Patient is an 87-year-old male presents emergency department for Chronic diarrhea. Patient has been having diarrhea for approximately 2 months. States that his diarrhea is varying in color going from what he describes as coffee-ground to watery brown. Denies any abdominal pain. According to chart review patient has history of colon cancer. Patient has any abdominal pain. No nausea vomiting. His grandson called EMS who transported patient to the emergency department. Patient denies any fever or constitutional symptoms. Denies any rectal pain. States that he has 2 bouts of diarrhea daily for the last 2 months. The ROS documented in this emergency department record has been reviewed and confirmed by me. Those systems with pertinent positive or negative responses have been documented in the HPI. All other systems are other negative and/or noncontributory. - Related Data Home Medications Medication Instructions Recorded Confirmed Atorvastatin [Lipitor] 40 mg PO HS@2100 02/13/18 04/28/23 Citalopram Hydrobromide [CeleXA] 20 mg PO DAILY@0900 02/13/18 04/28/23 Tamsulosin [Flomax] 0.4 mg PO DAILY@0900 02/13/18 04/28/23 Cholecalciferol [Vitamin D3 (25 50 mcg PO DAILY@0900 02/23/23 04/28/23 Mcg = 1000 Iu)] Levothyroxine Sodium [Synthroid] 75 mcg PO DAILY@0700 02/23/23 04/28/23 Miconazole Nitrate 2% Powder 1 applic TOPICAL BID@0600,209902/23/23 04/28/23 Multivitamins, Thera [Multivitamin 1 tab PO DAILY@0700 02/23/23 04/28/23 (formulary)] Rivaroxaban [Xarelto] 15 mg PO DAILY@1500 02/23/23 04/28/23 Trospium Chloride 20 mg PO HS@2100 02/23/23 04/28/23 Psyllium Husk (with Sugar) [Fiber 1 dose PO DAILY@0900 04/28/23 04/28/23 Powder] carvediloL [Coreg] 6.25 mg PO BID 04/28/23 04/28/23 Allergies Allergy/AdvReac Type Severity Reaction Status Date / Time No Known Allergies Allergy Verified 04/28/23 18:07 Review of Systems ROS Statement: Those systems with pertinent positive or pertinent negative responses have been documented in the HPI. ROS Other: All systems not noted in ROS Statement are negative. Past Medical History Past Medical History: Atrial Fibrillation, Cancer, Hyperlipidemia, Hypertension, Prostate Disorder, Thyroid Disorder Additional Past Medical History / Comment(s): colon cancer-. was recently in [facility] for hypertensive encephalopathy- was very lethargic at home he could not understand directions, confused, could not talk right had word salad could not hold pen, confused symptoms of stroke but doctors ruled out no stroke, very hypertensive confusion related to encephalopathy, could not comprehend anything. He is better with talking now, each day language gets better and comprehending is better but not all the way where it needs to be, uses a cane or walker to walk. History of Any Multi-Drug Resistant Organisms: None Reported Past Surgical History: Appendectomy, Heart Catheterization With Stent, Orthopedic Surgery Additional Past Surgical History / Comment(s): Polyp removal cardiac ablation for a fibrillation, left shoulder surgery Past Anesthesia/Blood Transfusion Reactions: No Reported Reaction Date of Last Stent Placement:: 2012 Past Psychological History: No Psychological Hx Reported Smoking Status: Former smoker Past Alcohol Use History: None Reported Past Drug Use History: None Reported - Past Family History Father History Unknown: Yes Mother Family Medical History: Cancer Additional Family Medical History / Comment(s): pancreatic cancer, aortic aneurysm General Exam - General Exam Comments Initial Comments: PHYSICAL EXAM: General Impression: Alert and oriented x3, not in acute distress HEENT: Normocephalic atraumatic, extra-ocular movements intact, pupils equal and reactive to light bilaterally, mucous membranes moist. Cardiovascular: Heart regular rate and rhythm Chest: Able to complete full sentences, no retractions, no tachypnea Abdomen: abdomen soft, non-tender, non-distended, no organomegaly Musculoskeletal: Pulses present and equal in all extremities, no peripheral edema Motor: no focal deficits noted Neurological: CN II-XII grossly intact, no focal motor or sensory deficits noted Skin: Intact with no visualized rashes Psych: Normal affect and mood Rectal exam, no gross blood Limitations: no limitations Course Vital Signs 04/28/23 15:49 Temperature 98.5 F Pulse Rate 94 Respiratory 18 Rate Blood Pressure 116/73 O2 Sat by Pulse 86 L Oximetry Medical Decision Making - Medical Decision Making Was pt. sent in by a medical professional or institution (, [facility], [employer] [employer], urgent care, hospital, or custodial...) When possible be specific @ -No Did you speak to anyone other than the patient for history (EMS, parent, family, police, friend...)? What history was obtained from this source @ -No Did you review nursing and triage notes (agree or disagree)? Why? @ -I reviewed and agree with nursing and triage notes Were old charts reviewed (outside hosp., previous admission, EMS record, old EKG, old radiological studies, urgent care reports/EKG's, custodial records)? Report findings @ -No old charts were reviewed Differential Diagnosis (chest pain, altered mental status, abdominal pain women, abdominal pain men, vaginal bleeding, musculoskeletal, weakness, fever, dyspnea, syncope, headache, dizziness, GI bleed, back pain, seizure, CVA, palpatations, mental health)? @ -Infectious diarrhea, diverticulitis, colitis EKG interpreted by me (3pts min.). @ -None done X-rays interpreted by me (1pt min.). @ -None done CT interpreted by me (1pt min.). @ -Computed tomography scan of the abdomen pelvis shows no acute processes U/S interpreted by me (1pt. min.). @ -None done What testing was considered but not performed or refused? (CT, X-rays, U/S, labs)? Why? @ -None What meds were considered but not given or refused? Why? @ -None Did you discuss the management of the patient with other professionals (professionals i.e. [facility] Reece, [employer], lab, RT, psych nurse, addiction social worker, setup operator, teacher, field artillery officer, sample case porter)? Give summary @ -No Was smoking cessation discussed for >3mins.? @ -No Was critical care preformed (if so, how long)? @ -No Were there social determinants of health that impacted care today? How? (Homelessness, low income, unemployed, alcoholism, drug addiction, transportation, low edu. Level, literacy, decrease access to med. care, fdc, rehab)? @ -No Was there de-escalation of care discussed even if they declined (Discuss DNR or withdrawal of care, Hospice)? DNR status @ -No What co-morbidities impacted this encounter? (DM, HTN, Smoking, COPD, CAD, Cancer, CVA, ARF, Chemo, Hep., AIDS, mental health diagnosis, sleep apnea, morbid obesity)? @ -None Was patient admitted / discharged? Hospital course, mention meds given and route, prescriptions, significant lab abnormalities, going to OR and other pertinent info. @ -87-year-old male presents to the ER for chronic diarrhea. Vital signs upon arrival are within acceptable limits. Patient's well-appearing. Patient has soft abdomen. Initial oxygen level of 86% was clear and air. Repeat oxygen level is normal. Patient has no respiratory symptoms or complaints. He is not in any respiratory distress. Laboratory evaluation has polycythemia unclear significance. Hemoglobin level is 19.5 which is increased since February. Metabolic panel is unremarkable. So-called blood is negative. Computed tomography scan is negative. Patient told that his hemoglobin levels are elevated and he should follow up also with his primary care doctor for his diarrhea. Patient given starter pack for antidiarrhea medications. Undiagnosed new problem with uncertain prognosis? @ -No Drug Therapy requiring intensive monitoring for toxicity (Heparin, Nitro, Insulin, Cardizem)? @ -No Were any procedures done? @ -No Diagnosis/symptom? Acute, or Chronic, or Acute on Chronic? Uncomplicated (without systemic symptoms) or Complicated (systemic symptoms)? @ -Chronic diarrhea Side effects of treatment? @ -No Exacerbation, Progression, or Severe Exacerbation? @ -No Poses a threat to life or bodily function? How? (Chest pain, USA, ND, pneumonia, PE, COPD, DKA, ARF, appy, cholecystitis, CVA, Diverticulitis, Homicidal, Suicidal, threat to staff... and all critical care pts) @ -yes - Lab Data Result diagrams: 04/28/23 17:49 04/28/23 17:49 Lab Results 04/28/23 04/28/23 04/28/23 Range/Units 17:49 17:49 17:49 WBC 10.8 H (3.8-10.6) k/uL RBC 6.36 H (4.30-5.90) m/uL Hgb 19.5 H* D (13.0-17.5) gm/dL Hct 58.2 H* (39.0-53.0) % MCV 91.6 (80.0-100.0) fL MCH 30.7 (25.0-35.0) pg MCHC 33.5 (31.0-37.0) g/dL RDW 15.1 (11.5-15.5) % Plt Count 191 (150-450) k/uL MPV 7.7 Neutrophils % (Manual) 45 % Band Neuts % (Manual) 12 % Lymphocytes % (Manual) 19 % Monocytes % (Manual) 19 % Eosinophils % (Manual) 6 % Myelocytes % 1 % Neutrophils # (Manual) 6.10 (1.3-7.7) k/uL Lymphocytes # (Manual) 2.05 (1.0-4.8) k/uL Monocytes # (Manual) 2.05 H (0-1.0) k/uL Eosinophils # (Manual) 0.65 (0-0.7) k/uL Myelocytes # (Manual) 0.11 H (0) k/uL Nucleated RBCs 0 (0-0) /100 WBC Manual Slide Review Performed Toxic Granulation Present Sodium 140 (137-145) mmol/L Potassium 3.8 (3.5-5.1) mmol/L Chloride 109 H (98-107) mmol/L Carbon Dioxide 22 (22-30) mmol/L Anion Gap 9 mmol/L BUN 26 H (9-20) mg/dL Creatinine 1.62 H (0.66-1.25) mg/dL Est GFR (CKD-EPI)AfAm 43 (>60 ml/min/1.73 sqM) Est GFR (CKD-EPI)NonAf 38 (>60 ml/min/1.73 sqM) Glucose 101 H (74-99) mg/dL Plasma Lactic Acid Srinivasan (0.7-2.0) mmol/L Calcium 9.3 (8.4-10.2) mg/dL Magnesium 1.6 (1.6-2.3) mg/dL Total Bilirubin 1.2 (0.2-1.3) mg/dL AST 26 (17-59) U/L ALT 30 (4-49) U/L Alkaline Phosphatase 109 (38-126) U/L Total Protein 7.8 (6.3-8.2) g/dL Albumin 3.8 (3.5-5.0) g/dL Stool Occult Blood Negative (Negative) 04/28/23 Range/Units 17:49 WBC (3.8-10.6) k/uL RBC (4.30-5.90) m/uL Hgb (13.0-17.5) gm/dL Hct (39.0-53.0) % MCV (80.0-100.0) fL MCH (25.0-35.0) pg MCHC (31.0-37.0) g/dL RDW (11.5-15.5) % Plt Count (150-450) k/uL MPV Neutrophils % (Manual) % Band Neuts % (Manual) % Lymphocytes % (Manual) % Monocytes % (Manual) % Eosinophils % (Manual) % Myelocytes % % Neutrophils # (Manual) (1.3-7.7) k/uL Lymphocytes # (Manual) (1.0-4.8) k/uL Monocytes # (Manual) (0-1.0) k/uL Eosinophils # (Manual) (0-0.7) k/uL Myelocytes # (Manual) (0) k/uL Nucleated RBCs (0-0) /100 WBC Manual Slide Review Toxic Granulation Sodium (137-145) mmol/L Potassium (3.5-5.1) mmol/L Chloride (98-107) mmol/L Carbon Dioxide (22-30) mmol/L Anion Gap mmol/L BUN (9-20) mg/dL Creatinine (0.66-1.25) mg/dL Est GFR (CKD-EPI)AfAm (>60 ml/min/1.73 sqM) Est GFR (CKD-EPI)NonAf (>60 ml/min/1.73 sqM) Glucose (74-99) mg/dL Plasma Lactic Acid Srinivasan 1.2 (0.7-2.0) mmol/L Calcium (8.4-10.2) mg/dL Magnesium (1.6-2.3) mg/dL Total Bilirubin (0.2-1.3) mg/dL AST (17-59) U/L ALT (4-49) U/L Alkaline Phosphatase (38-126) U/L Total Protein (6.3-8.2) g/dL Albumin (3.5-5.0) g/dL Stool Occult Blood (Negative) Disposition Clinical Impression: Polycythemia, Diarrhea Disposition: HOME SELF-CARE Condition: Fair Instructions (If sedation given, give patient instructions): Chronic Diarrhea (ED), Polycythemia Vera (DC) Additional Instructions: your hemoglobin level was significantly elevated. It is important to follow up with your PCP for further evaluation of this along with your chronic diarrhea. Is patient prescribed a controlled substance at d/c from ED?: No Referrals: Levi Pino MD [Primary Care Provider] - 1-2 days Time of Disposition: 20:29
[2023-04-28 18:24] LABS: MCH 30.7 pg (25.0-35.0); MCHC 33.5 g/dL (31.0-37.0); MCV 91.6 fL (80.0-100.0); Mean Platelet Volume 7.7; Platelet Count 191 k/uL (150-450); RBC 6.36 m/uL (4.30-5.90); RDW 15.1 % (11.5-15.5); WBC 10.8 k/uL (3.8-10.6)
[2023-04-28 18:30] LABS: ALT 30 U/L (4-49); AST 26 U/L (17-59); African American GFR (CKD) 43 (>60 ml/min/1.73 sqM); Albumin 3.8 g/dL (3.5-5.0); Alkaline Phosphatase 109 U/L (38-126); Anion Gap 9 mmol/L; Blood Urea Nitrogen 26 mg/dL (9-20); Calcium 9.3 mg/dL (8.4-10.2); Carbon Dioxide 22 mmol/L (22-30); Chloride 109 mmol/L (98-107); Glucose 101 mg/dL (74-99); Magnesium 1.6 mg/dL (1.6-2.3); Non-African American GFR(CKD) 38 (>60 ml/min/1.73 sqM); Potassium 3.8 mmol/L (3.5-5.1); Sodium 140 mmol/L (137-145); Total Bilirubin 1.2 mg/dL (0.2-1.3); Total Protein 7.8 g/dL (6.3-8.2)
[2023-04-28 18:35] LABS: HCT 58.2 % (39.0-53.0); HGB 19.5 gm/dL (13.0-17.5)
[2023-04-28] MEDS ORDERED: SODIUM CHLORIDE 0.9% 1,000 ML IV STA (18:40)
[2023-04-28 18:55] LABS: Band Neutrophils % 12 %; Eosinophils # (M) 0.65 k/uL (0-0.7); Lymphocytes # (M) 2.05 k/uL (1.0-4.8); Monocytes # (M) 2.05 k/uL (0-1.0); Myelocytes # (M) 0.11 k/uL (0); Myelocytes % 1 %; Neutrophils % (M) 45 %; Nucleated Red Blood Cells 0 /100 WBC (0-0); Total Cells Counted 200; Toxic Granulation Present
--- NOTE | 2023-04-28 19:54 | CT ---
EXAMINATION TYPE: CT abdomen pelvis wo con CT DLP: 976.3 mGycm, Automated exposure control for dose reduction was used. DATE OF EXAM: 04/28/2023 6:58 PM COMPARISON: CT abdomen pelvis most recent from 02/13/2018 CLINICAL INDICATION:Male, 87 years old with history of diarrhea; diarrhea x months TECHNIQUE: Axial CT abdomen pelvis wo con;Sagittal and coronal reformats were created on a separate workstation. Contrast used: mL of , (none if empty) Oral contrast used: without Oral Contrast (none if empty) FINDINGS: LOWER CHEST: The heart is enlarged for size. Intralobular thickening in the lung bases. Moderate leny nary artery atherosclerosis. Sternotomy wires are present. ABDOMEN LIVER: Unremarkable GALLBLADDER AND BILE DUCTS: Layering increased densities within the lumen consistent with gallstones are present. PANCREAS: Unremarkable. SPLEEN: Unremarkable. ADRENAL GLANDS: Unremarkable. KIDNEYS AND URETERS: No evidence of hydronephrosis or renal calculus. The ureters are unremarkable. PELVIS BLADDER: Unremarkable REPRODUCTIVE: Prostate is enlarged in size measuring 5.7 cm in transverse dimension. ABDOMEN & PELVIS STOMACH AND BOWEL: No evidence of bowel obstruction. Liquid contents within the colon. Scattered colo ej diverticula. The appendix is not definitively visualized. PERITONEUM/RETROPERITONEUM: No evidence of pneumoperitoneum or free fluid. VASCULATURE: Mild atherosclerotic calcifications are present throughout the abdominal aorta and its b ranches. No evidence of aortic aneurysm. MUSCULOSKELETAL: No acute osseous abnormalities. Moderate disc degeneration changes are present throu ghout the thoracolumbar spine. LYMPH NODES: No gross evidence for lymphadenopathy. SOFT TISSUE/ABDOMINAL WALL: Fat-containing right inguinal hernia. Fat-containing umbilical hernia. IMPRESSION: 1. No evidence for acute abdominal process. Watery contents within the colon. 2. Cardiomegaly with pulmonary vascular congestion correlate serum BNP. 3. Cholelithiasis. 4. Prostatomegaly constant PSA. 5. Fat-containing right inguinal hernia and umbilical hernia.
[2023-04-28] MEDS ORDERED: DIPHENOX-ATROP STARTER PACK 8 TAB BTL PO STA (20:35)
[2023-04-28 21:46] VITALS: BP 124/80; PULSE 110
== END 2023-04-28 21:37 | disposition home or self-care (01) ==
LOC: EC 15:44
DX: K52.9 Noninfective gastroenteritis and colitis, unspecified (principal); D75.1 Secondary polycythemia; I10 Essential (primary) hypertension; E78.5 Hyperlipidemia, unspecified; I48.91 Unspecified atrial fibrillation; E07.9 Disorder of thyroid, unspecified; Z79.890 Hormone replacement therapy; Z79.01 Long term (current) use of anticoagulants; Z79.899 Other long term (current) drug therapy; Z87.891 Personal history of nicotine dependence
CPT/HCPCS: 36415; 74176; 80053; 82272; 83605; 83735; 85025; 99284